=== PATIENT | male | born 1975 | race Caucasian/White ===

== ENCOUNTER 2020-07-14 19:01 | Emergency (ER) | payer OTHER ==
[2020-07-14] MEDS ORDERED: SODIUM CHLORIDE 0.9% 1,000 ML IV STA (19:25)
--- NOTE | 2020-07-14 20:01 | ED ---
General Adult HPI <Nelson Campos - Last Filed: 07/15/20 20:29> <Fam Colin - Last Filed: 07/15/20 23:14> - General Source: patient, family, RN notes reviewed, old records reviewed Mode of arrival: ambulatory Limitations: no limitations <Fam Le - Last Filed: 07/22/20 02:42> - General Chief complaint: Overdose Stated complaint: suicidal Time Seen by Provider: 07/14/20 19:15 - History of Present Illness Initial comments: 44-year-old male with schizoaffective disorder presenting for mental health evaluation. Patient states he has 3 voices in his head that are tormenting him. He does have a known history of mental illness. He had taken 15 gabapentin and 8 Ativan prior to arrival. He states this was not a suicide attempt. He states this was so that he could rest while he was in the emergency department. He is accompanied by his who has petitioned him. He has no physical complaints. (Fam Le) - Related Data Home Medications Medication Instructions Recorded Confirmed Methylphenidate HCl [Ritalin] 20 mg PO BID 10/17/14 07/16/20 FLUoxetine HCL [PROzac] 40 mg PO DAILY 07/14/20 07/16/20 Gabapentin 600 mg PO TID 07/14/20 07/16/20 INSULIN LISPRO (HumaLOG) [humaLOG] See Protocol SQ AC-TID 07/14/20 07/16/20 Insulin Detemir (Levemir) [Levemir] 50 unit SQ DAILY 07/14/20 07/16/20 LORazepam [Ativan] 0.5 mg PO DAILY PRN 07/14/20 07/16/20 Allergies Allergy/AdvReac Type Severity Reaction Status Date / Time No Known Allergies Allergy Verified 07/16/20 17:05 Review of Systems ROS Other: All systems not noted in ROS Statement are negative. <Nelson Campos - Last Filed: 07/15/20 20:29> ROS Other: All systems not noted in ROS Statement are negative. <Fam Colin - Last Filed: 07/15/20 23:14> ROS Other: All systems not noted in ROS Statement are negative. <Fam Le - Last Filed: 07/22/20 02:42> ROS Statement: Those systems with pertinent positive or pertinent negative responses have been documented in the HPI. Past Medical History Past Medical History: Diabetes Mellitus Additional Past Medical History / Comment(s): chronic back pain. PUNTURED RIGHT LUNG POST ACCIDENT (CHEST-TUBE) History of Any Multi-Drug Resistant Organisms: None Reported Past Surgical History: Appendectomy Past Anesthesia/Blood Transfusion Reactions: Previous Problems w/ Anesthesia Additional Past Anesthesia/Blood Transfusion Reaction / Comment(s): AGITATION, PATIENT STATES HE "FREAKED OUT", TRIED TO PULL OUT TUBES. Past Psychological History: Anxiety, Bipolar Smoking Status: Current every day smoker Past Alcohol Use History: Occasional Past Drug Use History: Marijuana - Past Family History Mother Family Medical History: Diabetes Mellitus <Fam Le - Last Filed: 07/22/20 02:42> General Exam Limitations: no limitations General appearance: alert, in no apparent distress Head exam: Present: atraumatic, normocephalic Eye exam: Present: normal appearance, PERRL ENT exam: Present: mucous membranes dry Neck exam: Present: normal inspection. Absent: tenderness, meningismus Respiratory exam: Present: normal lung sounds bilaterally. Absent: respiratory distress, wheezes Cardiovascular Exam: Present: normal rhythm, tachycardia GI/Abdominal exam: Present: soft. Absent: distended, tenderness, guarding, rebound Extremities exam: Present: normal inspection, normal capillary refill Neurological exam: Present: alert. Absent: motor sensory deficit Psychiatric exam: Present: agitated, flat affect, other (Flat affect, paranoid, delusional) Skin exam: Present: warm, dry, intact <Fam Le N - Last Filed: 07/22/20 02:42> Course <Fam Cloin - Last Filed: 07/15/20 23:14> <Fam Le N - Last Filed: 07/22/20 02:42> Vital Signs 07/14/20 07/15/20 07/15/20 19:03 07:21 17:30 Temperature 99.3 F 98 F 98.7 F Pulse Rate 113 H 90 98 Respiratory 16 18 18 Rate Blood Pressure 154/74 122/58 131/72 O2 Sat by Pulse 98 96 98 Oximetry 07/16/20 07:31 Temperature 98.2 F Pulse Rate 102 H Respiratory 18 Rate Blood Pressure 122/75 O2 Sat by Pulse 98 Oximetry - Reevaluation(s) Reevaluation #1: 07/14/20 21:10 Poison control has been contacted and and recommended supportive care. Patient has been medically cleared for EPS evaluation. (Fam Le) Reevaluation #2: 07/15/20 23:[address] Randhawa at shift change. (Fma Colin) Reevaluation #3: 07/22/20 02:42 Review the medical record it appears patient was transferred. (Fam Le) EKG Findings - EKG Comments: EKG Findings:: EKG: Sinus tachycardia, rate of 116, TN interval 172, QRS duration 84, QTC 442 <Fam eL - Last Filed: 07/22/20 02:42> Medical Decision Making - Lab Data Result diagrams: 07/14/20 20:22 07/14/20 20:22 <Nelson Campos - Last Filed: 07/15/20 20:29> - Lab Data Result diagrams: 07/14/20 20:22 07/14/20 20:22 <Fam Colin - Last Filed: 07/15/20 23:14> - Lab Data Result diagrams: 07/14/20 20:22 07/14/20 20:22 <Fam Le - Last Filed: 07/22/20 02:42> - Medical Decision Making Dr. Colin will be taking over the care of this patient at 9pm (Nelson Campos) - Lab Data Lab Results 07/14/20 07/14/20 07/14/20 Range/Units 20:22 20:22 20:22 WBC 8.8 (3.8-10.6) k/uL RBC 5.35 (4.30-5.90) m/uL Hgb 16.8 (13.0-17.5) gm/dL Hct 50.5 (39.0-53.0) % MCV 94.5 (80.0-100.0) fL MCH 31.4 (25.0-35.0) pg MCHC 33.2 (31.0-37.0) g/dL RDW 13.7 (11.5-15.5) % Plt Count 350 (150-450) k/uL MPV 7.0 Neutrophils % 57 % Lymphocytes % 29 % Monocytes % 5 % Eosinophils % 5 % Basophils % 2 % Neutrophils # 5.0 (1.3-7.7) k/uL Lymphocytes # 2.6 (1.0-4.8) k/uL Monocytes # 0.4 (0-1.0) k/uL Eosinophils # 0.4 (0-0.7) k/uL Basophils # 0.2 (0-0.2) k/uL PT 10.0 (9.0-12.0) sec INR 1.0 (<1.2) Sodium (137-145) mmol/L Potassium (3.5-5.1) mmol/L Chloride (98-107) mmol/L Carbon Dioxide (22-30) mmol/L Anion Gap mmol/L BUN (9-20) mg/dL Creatinine (0.66-1.25) mg/dL Est GFR (CKD-EPI)AfAm (>60 ml/min/1.73 sqM) Est GFR (CKD-EPI)NonAf (>60 ml/min/1.73 sqM) Glucose (74-99) mg/dL POC Glucose (mg/dL) (75-99) mg/dL POC Glu [employer] ID Plasma Lactic Acid Mateusz (0.7-2.0) mmol/L Calcium (8.4-10.2) mg/dL Phosphorus (2.5-4.5) mg/dL Magnesium (1.6-2.3) mg/dL Total Bilirubin (0.2-1.3) mg/dL AST (17-59) U/L ALT (4-49) U/L Alkaline Phosphatase (38-126) U/L Creatine Kinase (55-170) U/L Total Protein (6.3-8.2) g/dL Albumin (3.5-5.0) g/dL Urine Color Light Yellow Urine Appearance Clear (Clear) Urine pH 6.5 (5.0-8.0) Ur Specific [place] 1.032 (1.001-1.035) Urine Protein Negative (Negative) Urine Glucose (UA) 4+ H (Negative) Urine Ketones Negative (Negative) Urine Blood Negative (Negative) Urine Nitrite Negative (Negative) Urine Bilirubin Negative (Negative) Urine Urobilinogen <2.0 (<2.0) mg/dL Ur Leukocyte Esterase Negative (Negative) Salicylates mg/dL Urine Opiates Screen Not Detected (NotDetected) Ur Oxycodone Screen Not Detected (NotDetected) Urine Methadone Screen Not Detected (NotDetected) Ur Propoxyphene Screen Not Detected (NotDetected) Acetaminophen ug/mL Ur Barbiturates Screen Not Detected (NotDetected) U Tricyclic Antidepress Not Detected (NotDetected) Ur Phencyclidine Scrn Not Detected (NotDetected) Ur Amphetamines Screen Not Detected (NotDetected) U Methamphetamines Scrn Not Detected (NotDetected) U Benzodiazepines Scrn Detected H (NotDetected) Urine Cocaine Screen Not Detected (NotDetected) U Marijuana (THC) Screen Detected H (NotDetected) Serum Alcohol mg/dL Coronavirus (PCR) (Not Detectd) 07/14/20 07/14/20 07/15/20 Range/Units 20:22 20:22 01:30 WBC (3.8-10.6) k/uL RBC (4.30-5.90) m/uL Hgb (13.0-17.5) gm/dL Hct (39.0-53.0) % MCV (80.0-100.0) fL MCH (25.0-35.0) pg MCHC (31.0-37.0) g/dL RDW (11.5-15.5) % Plt Count (150-450) k/uL MPV Neutrophils % % Lymphocytes % % Monocytes % % Eosinophils % % Basophils % % Neutrophils # (1.3-7.7) k/uL Lymphocytes # (1.0-4.8) k/uL Monocytes # (0-1.0) k/uL Eosinophils # (0-0.7) k/uL Basophils # (0-0.2) k/uL PT (9.0-12.0) sec INR (<1.2) Sodium 136 L (137-145) mmol/L Potassium 4.7 (3.5-5.1) mmol/L Chloride 104 (98-107) mmol/L Carbon Dioxide 23 (22-30) mmol/L Anion Gap 9 mmol/L BUN 12 (9-20) mg/dL Creatinine 0.76 (0.66-1.25) mg/dL Est GFR (CKD-EPI)AfAm >90 (>60 ml/min/1.73 sqM) Est GFR (CKD-EPI)NonAf >90 (>60 ml/min/1.73 sqM) Glucose 417 H (74-99) mg/dL POC Glucose (mg/dL) (75-99) mg/dL POC Glu [employer] ID Plasma Lactic Acid Mateusz 1.7 (0.7-2.0) mmol/L Calcium 10.0 (8.4-10.2) mg/dL Phosphorus 4.4 (2.5-4.5) mg/dL Magnesium 2.2 (1.6-2.3) mg/dL Total Bilirubin 0.4 (0.2-1.3) mg/dL AST 24 (17-59) U/L ALT 25 (4-49) U/L Alkaline Phosphatase 109 (38-126) U/L Creatine Kinase 40 L (55-170) U/L Total Protein 7.2 (6.3-8.2) g/dL Albumin 4.3 (3.5-5.0) g/dL Urine Color Urine Appearance (Clear) Urine pH (5.0-8.0) Ur Specific [place] (1.001-1.035) Urine Protein (Negative) Urine Glucose (UA) (Negative) Urine Ketones (Negative) Urine Blood (Negative) Urine Nitrite (Negative) Urine Bilirubin (Negative) Urine Urobilinogen (<2.0) mg/dL Ur Leukocyte Esterase (Negative) Salicylates <1.0 mg/dL Urine Opiates Screen (NotDetected) Ur Oxycodone Screen (NotDetected) Urine Methadone Screen (NotDetected) Ur Propoxyphene Screen (NotDetected) Acetaminophen <10.0 ug/mL Ur Barbiturates Screen (NotDetected) U Tricyclic Antidepress (NotDetected) Ur Phencyclidine Scrn (NotDetected) Ur Amphetamines Screen (NotDetected) U Methamphetamines Scrn (NotDetected) U Benzodiazepines Scrn (NotDetected) Urine Cocaine Screen (NotDetected) U Marijuana (THC) Screen (NotDetected) Serum Alcohol <10 mg/dL Coronavirus (PCR) Not Detected (Not Detectd) 07/15/20 07/15/20 07/15/20 Range/Units 04:51 06:11 08:48 WBC (3.8-10.6) k/uL RBC (4.30-5.90) m/uL Hgb (13.0-17.5) gm/dL Hct (39.0-53.0) % MCV (80.0-100.0) fL MCH (25.0-35.0) pg MCHC (31.0-37.0) g/dL RDW (11.5-15.5) % Plt Count (150-450) k/uL MPV Neutrophils % % Lymphocytes % % Monocytes % % Eosinophils % % Basophils % % Neutrophils # (1.3-7.7) k/uL Lymphocytes # (1.0-4.8) k/uL Monocytes # (0-1.0) k/uL Eosinophils # (0-0.7) k/uL Basophils # (0-0.2) k/uL PT (9.0-12.0) sec INR (<1.2) Sodium (137-145) mmol/L Potassium (3.5-5.1) mmol/L Chloride (98-107) mmol/L Carbon Dioxide (22-30) mmol/L Anion Gap mmol/L BUN (9-20) mg/dL Creatinine (0.66-1.25) mg/dL Est GFR (CKD-EPI)AfAm (>60 ml/min/1.73 sqM) Est GFR (CKD-EPI)NonAf (>60 ml/min/1.73 sqM) Glucose (74-99) mg/dL POC Glucose (mg/dL) 328 H 269 H 356 H (75-99) mg/dL POC Glu [employer] CECY Tillman, Claire Tillman, Valerie Martin Plasma Lactic Acid Mateusz (0.7-2.0) mmol/L Calcium (8.4-10.2) mg/dL Phosphorus (2.5-4.5) mg/dL Magnesium (1.6-2.3) mg/dL Total Bilirubin (0.2-1.3) mg/dL AST (17-59) U/L ALT (4-49) U/L Alkaline Phosphatase (38-126) U/L Creatine Kinase (55-170) U/L Total Protein (6.3-8.2) g/dL Albumin (3.5-5.0) g/dL Urine Color Urine Appearance (Clear) Urine pH (5.0-8.0) Ur Specific [place] (1.001-1.035) Urine Protein (Negative) Urine Glucose (UA) (Negative) Urine Ketones (Negative) Urine Blood (Negative) Urine Nitrite (Negative) Urine Bilirubin (Negative) Urine Urobilinogen (<2.0) mg/dL Ur Leukocyte Esterase (Negative) Salicylates mg/dL Urine Opiates Screen (NotDetected) Ur Oxycodone Screen (NotDetected) Urine Methadone Screen (NotDetected) Ur Propoxyphene Screen (NotDetected) Acetaminophen ug/mL Ur Barbiturates Screen (NotDetected) U Tricyclic Antidepress (NotDetected) Ur Phencyclidine Scrn (NotDetected) Ur Amphetamines Screen (NotDetected) U Methamphetamines Scrn (NotDetected) U Benzodiazepines Scrn (NotDetected) Urine Cocaine Screen (NotDetected) U Marijuana (THC) Screen (NotDetected) Serum Alcohol mg/dL Coronavirus (PCR) (Not Detectd) 07/15/20 07/15/20 07/15/20 Range/Units 10:37 11:54 12:50 WBC (3.8-10.6) k/uL RBC (4.30-5.90) m/uL Hgb (13.0-17.5) gm/dL Hct (39.0-53.0) % MCV (80.0-100.0) fL MCH (25.0-35.0) pg MCHC (31.0-37.0) g/dL RDW (11.5-15.5) % Plt Count (150-450) k/uL MPV Neutrophils % % Lymphocytes % % Monocytes % % Eosinophils % % Basophils % % Neutrophils # (1.3-7.7) k/uL Lymphocytes # (1.0-4.8) k/uL Monocytes # (0-1.0) k/uL Eosinophils # (0-0.7) k/uL Basophils # (0-0.2) k/uL PT (9.0-12.0) sec INR (<1.2) Sodium (137-145) mmol/L Potassium (3.5-5.1) mmol/L Chloride (98-107) mmol/L Carbon Dioxide (22-30) mmol/L Anion Gap mmol/L BUN (9-20) mg/dL Creatinine (0.66-1.25) mg/dL Est GFR (CKD-EPI)AfAm (>60 ml/min/1.73 sqM) Est GFR (CKD-EPI)NonAf (>60 ml/min/1.73 sqM) Glucose (74-99) mg/dL POC Glucose (mg/dL) 422 H 287 H 198 H (75-99) mg/dL POC Glu [employer] ID Lakeisha, Li Davenport, Valerie Davenport, Valerie Plasma Lactic Acid Mateusz (0.7-2.0) mmol/L Calcium (8.4-10.2) mg/dL Phosphorus (2.5-4.5) mg/dL Magnesium (1.6-2.3) mg/dL Total Bilirubin (0.2-1.3) mg/dL AST (17-59) U/L ALT (4-49) U/L Alkaline Phosphatase (38-126) U/L Creatine Kinase (55-170) U/L Total Protein (6.3-8.2) g/dL Albumin (3.5-5.0) g/dL Urine Color Urine Appearance (Clear) Urine pH (5.0-8.0) Ur Specific [place] (1.001-1.035) Urine Protein (Negative) Urine Glucose (UA) (Negative) Urine Ketones (Negative) Urine Blood (Negative) Urine Nitrite (Negative) Urine Bilirubin (Negative) Urine Urobilinogen (<2.0) mg/dL Ur Leukocyte Esterase (Negative) Salicylates mg/dL Urine Opiates Screen (NotDetected) Ur Oxycodone Screen (NotDetected) Urine Methadone Screen (NotDetected) Ur Propoxyphene Screen (NotDetected) Acetaminophen ug/mL Ur Barbiturates Screen (NotDetected) U Tricyclic Antidepress (NotDetected) Ur Phencyclidine Scrn (NotDetected) Ur Amphetamines Screen (NotDetected) U Methamphetamines Scrn (NotDetected) U Benzodiazepines Scrn (NotDetected) Urine Cocaine Screen (NotDetected) U Marijuana (THC) Screen (NotDetected) Serum Alcohol mg/dL Coronavirus (PCR) (Not Detectd) 07/15/20 07/15/20 07/15/20 Range/Units 14:42 15:27 22:35 WBC (3.8-10.6) k/uL RBC (4.30-5.90) m/uL Hgb (13.0-17.5) gm/dL Hct (39.0-53.0) % MCV (80.0-100.0) fL MCH (25.0-35.0) pg MCHC (31.0-37.0) g/dL RDW (11.5-15.5) % Plt Count (150-450) k/uL MPV Neutrophils % % Lymphocytes % % Monocytes % % Eosinophils % % Basophils % % Neutrophils # (1.3-7.7) k/uL Lymphocytes # (1.0-4.8) k/uL Monocytes # (0-1.0) k/uL Eosinophils # (0-0.7) k/uL Basophils # (0-0.2) k/uL PT (9.0-12.0) sec INR (<1.2) Sodium (137-145) mmol/L Potassium (3.5-5.1) mmol/L Chloride (98-107) mmol/L Carbon Dioxide (22-30) mmol/L Anion Gap mmol/L BUN (9-20) mg/dL Creatinine (0.66-1.25) mg/dL Est GFR (CKD-EPI)AfAm (>60 ml/min/1.73 sqM) Est GFR (CKD-EPI)NonAf (>60 ml/min/1.73 sqM) Glucose (74-99) mg/dL POC Glucose (mg/dL) 124 H 135 H 214 H (75-99) mg/dL POC Glu [employer] Valerie Vicente Stephanie Sweeney, McKenna Plasma Lactic Acid Mateusz (0.7-2.0) mmol/L Calcium (8.4-10.2) mg/dL Phosphorus (2.5-4.5) mg/dL Magnesium (1.6-2.3) mg/dL Total Bilirubin (0.2-1.3) mg/dL AST (17-59) U/L ALT (4-49) U/L Alkaline Phosphatase (38-126) U/L Creatine Kinase (55-170) U/L Total Protein (6.3-8.2) g/dL Albumin (3.5-5.0) g/dL Urine Color Urine Appearance (Clear) Urine pH (5.0-8.0) Ur Specific [place] (1.001-1.035) Urine Protein (Negative) Urine Glucose (UA) (Negative) Urine Ketones (Negative) Urine Blood (Negative) Urine Nitrite (Negative) Urine Bilirubin (Negative) Urine Urobilinogen (<2.0) mg/dL Ur Leukocyte Esterase (Negative) Salicylates mg/dL Urine Opiates Screen (NotDetected) Ur Oxycodone Screen (NotDetected) Urine Methadone Screen (NotDetected) Ur Propoxyphene Screen (NotDetected) Acetaminophen ug/mL Ur Barbiturates Screen (NotDetected) U Tricyclic Antidepress (NotDetected) Ur Phencyclidine Scrn (NotDetected) Ur Amphetamines Screen (NotDetected) U Methamphetamines Scrn (NotDetected) U Benzodiazepines Scrn (NotDetected) Urine Cocaine Screen (NotDetected) U Marijuana (THC) Screen (NotDetected) Serum Alcohol mg/dL Coronavirus (PCR) (Not Detectd) 07/16/20 07/16/20 Range/Units 04:37 07:39 WBC (3.8-10.6) k/uL RBC (4.30-5.90) m/uL Hgb (13.0-17.5) gm/dL Hct (39.0-53.0) % MCV (80.0-100.0) fL MCH (25.0-35.0) pg MCHC (31.0-37.0) g/dL RDW (11.5-15.5) % Plt Count (150-450) k/uL MPV Neutrophils % % Lymphocytes % % Monocytes % % Eosinophils % % Basophils % % Neutrophils # (1.3-7.7) k/uL Lymphocytes # (1.0-4.8) k/uL Monocytes # (0-1.0) k/uL Eosinophils # (0-0.7) k/uL Basophils # (0-0.2) k/uL PT (9.0-12.0) sec INR (<1.2) Sodium (137-145) mmol/L Potassium (3.5-5.1) mmol/L Chloride (98-107) mmol/L Carbon Dioxide (22-30) mmol/L Anion Gap mmol/L BUN (9-20) mg/dL Creatinine (0.66-1.25) mg/dL Est GFR (CKD-EPI)AfAm (>60 ml/min/1.73 sqM) Est GFR (CKD-EPI)NonAf (>60 ml/min/1.73 sqM) Glucose (74-99) mg/dL POC Glucose (mg/dL) 228 H 263 H (75-99) mg/dL POC Glu [employer] ID Rose Gill Stephanie Plasma Lactic Acid Mateusz (0.7-2.0) mmol/L Calcium (8.4-10.2) mg/dL Phosphorus (2.5-4.5) mg/dL Magnesium (1.6-2.3) mg/dL Total Bilirubin (0.2-1.3) mg/dL AST (17-59) U/L ALT (4-49) U/L Alkaline Phosphatase (38-126) U/L Creatine Kinase (55-170) U/L Total Protein (6.3-8.2) g/dL Albumin (3.5-5.0) g/dL Urine Color Urine Appearance (Clear) Urine pH (5.0-8.0) Ur Specific [place] (1.001-1.035) Urine Protein (Negative) Urine Glucose (UA) (Negative) Urine Ketones (Negative) Urine Blood (Negative) Urine Nitrite (Negative) Urine Bilirubin (Negative) Urine Urobilinogen (<2.0) mg/dL Ur Leukocyte Esterase (Negative) Salicylates mg/dL Urine Opiates Screen (NotDetected) Ur Oxycodone Screen (NotDetected) Urine Methadone Screen (NotDetected) Ur Propoxyphene Screen (NotDetected) Acetaminophen ug/mL Ur Barbiturates Screen (NotDetected) U Tricyclic Antidepress (NotDetected) Ur Phencyclidine Scrn (NotDetected) Ur Amphetamines Screen (NotDetected) U Methamphetamines Scrn (NotDetected) U Benzodiazepines Scrn (NotDetected) Urine Cocaine Screen (NotDetected) U Marijuana (THC) Screen (NotDetected) Serum Alcohol mg/dL Coronavirus (PCR) (Not Detectd) Disposition <Nelson Campos - Last Filed: 07/15/20 20:29> <Fam Colin - Last Filed: 07/15/20 23:14> - Out of Hospital Transfer - Req. Specs Out of Hospital Transfer - Requested Specifics: Psychiatric Non-ICU (Transferred) <Fam Le - Last Filed: 07/22/20 02:42> Clinical Impression: Depression Disposition: OTHER INSTITUTION NOT DEFINED Condition: Undetermined Referrals: Mireya Elliott DO [Primary Care Provider] - 1-2 days
[2020-07-14 20:30] LABS: Basophils # (A) 0.2 k/uL (0-0.2); Basophils % (A) 2 %; Eosinophils # (A) 0.4 k/uL (0-0.7); Eosinophils % (A) 5 %; HCT 50.5 % (39.0-53.0); HGB 16.8 gm/dL (13.0-17.5); Lymphocytes # (A) 2.6 k/uL (1.0-4.8); Lymphocytes % (A) 29 %; MCH 31.4 pg (25.0-35.0); MCHC 33.2 g/dL (31.0-37.0); MCV 94.5 fL (80.0-100.0); Monocytes # (A) 0.4 k/uL (0-1.0); Monocytes % (A) 5 %; Neutrophils % (A) 57 %; Platelet Count 350 k/uL (150-450); RBC 5.35 m/uL (4.30-5.90); RDW 13.7 % (11.5-15.5); WBC 8.8 k/uL (3.8-10.6)
[2020-07-14 20:31] LABS: Appearance,Urine Clear (Clear); Bilirubin,Urine Negative (Negative); Blood,Urine Negative (Negative); Color,Urine Light Yellow; Glucose,Urine (UA) 4+ (Negative); Ketones,Urine Negative (Negative); Leukocyte Esterase,Urine Negative (Negative); Nitrite,Urine Negative (Negative); PH, Urine 6.5 (5.0-8.0); Protein,Urine Negative (Negative); Specific Gravity,Urine 1.032 (1.001-1.035); Urobilinogen,Urine <2.0 mg/dL (<2.0)
[2020-07-14 20:40] LABS: ALT 25 U/L (4-49); AST 24 U/L (17-59); Acetaminophen <10.0 ug/mL; African American GFR (CKD) >90 (>60 ml/min/1.73 sqM); Albumin 4.3 g/dL (3.5-5.0); Alcohol <10 mg/dL; Alkaline Phosphatase 109 U/L (38-126); Anion Gap 9 mmol/L; Blood Urea Nitrogen 12 mg/dL (9-20); Carbon Dioxide 23 mmol/L (22-30); Chloride 104 mmol/L (98-107); Creatine Kinase 40 U/L (55-170); Glucose 417 mg/dL (74-99); Magnesium 2.2 mg/dL (1.6-2.3); Non-African American GFR(CKD) >90 (>60 ml/min/1.73 sqM); Phosphorus 4.4 mg/dL (2.5-4.5); Potassium 4.7 mmol/L (3.5-5.1); Salicylate <1.0 mg/dL; Sodium 136 mmol/L (137-145); Total Bilirubin 0.4 mg/dL (0.2-1.3); Total Protein 7.2 g/dL (6.3-8.2)
[2020-07-14 20:45] LABS: Amphetamine Screen,Urine Not Detected (NotDetected); Barbiturate Screen,Urine Not Detected (NotDetected); Benzodiazepines Screen,Urine Detected (NotDetected); Cocaine Screen,Urine Not Detected (NotDetected); Methadone Screen, Urine Not Detected (NotDetected); Opiate Screen,Urine Not Detected (NotDetected); Oxycodone Screen, Urine Not Detected (NotDetected); Phencyclidine Screen,Urine Not Detected (NotDetected); Tricyclic Antidepressant,Urine Not Detected (NotDetected); Urn Cannabinoid Scrn Detected (NotDetected)
[2020-07-14] MEDS ORDERED: LORazepam 2 MG/ML INJ IV STA (23:27)
[2020-07-15] MEDS ORDERED: INSULIN REGULAR 100 UNIT/ML VIAL IV STA (04:39)
[2020-07-15 04:53] LABS: Glucose,Whole Blood 328 mg/dL (75-99)
[2020-07-15 06:13] LABS: Glucose,Whole Blood 269 mg/dL (75-99)
[2020-07-15] MEDS ORDERED: INSULIN REGULAR 100 UNIT/ML VIAL IV ONE ×2 (07:15→12:12)
[2020-07-15 07:25] VITALS: RESP 18
[2020-07-15 08:59] LABS: Glucose,Whole Blood 356 mg/dL (75-99)
[2020-07-15] MEDS ORDERED: SODIUM CHLORIDE 0.9% 1,000 ML IV ONE (09:11)
[2020-07-15] MEDS ORDERED: INSULIN ASPART (NovoLOG) 100 UNIT/ML VIAL SQ ONE ×2 (09:13→16:19)
[2020-07-15 10:38] LABS: Glucose,Whole Blood 422 mg/dL (75-99)
[2020-07-15 11:57] LABS: Glucose,Whole Blood 287 mg/dL (75-99)
[2020-07-15] MEDS ORDERED: NICOTINE 21MG/24HR PATCH TRANSDERM STA (11:59)
[2020-07-15] MEDS ORDERED: LORazepam 2 MG/ML INJ IV STA (12:12)
[2020-07-15 12:52] LABS: Glucose,Whole Blood 198 mg/dL (75-99)
[2020-07-15 14:43] LABS: Glucose,Whole Blood 124 mg/dL (75-99)
[2020-07-15 15:38] LABS: Glucose,Whole Blood 135 mg/dL (75-99)
[2020-07-15] MEDS: INSULIN ASPART (NovoLOG) 100 UNIT/ML VIAL SQ SCH (22:38)
[2020-07-15 22:47] LABS: Glucose,Whole Blood 214 mg/dL (75-99)
[2020-07-15] MEDS ORDERED: IBUPROFEN 600 MG TAB PO STA (22:49)
[2020-07-16 04:39] LABS: Glucose,Whole Blood 228 mg/dL (75-99)
[2020-07-16] MEDS ORDERED: LORazepam 1 MG TAB PO STA (04:45)
[2020-07-16 07:42] VITALS: BP 122/75; PULSE 102; TEMP 98.2
[2020-07-16 07:43] LABS: Glucose,Whole Blood 263 mg/dL (75-99)
[2020-07-16] MEDS: INSULIN ASPART (NovoLOG) 100 UNIT/ML VIAL SQ SCH (07:46)
== END 2020-07-16 12:24 | disposition other institution (70) ==
LOC: EC 19:01
DX: Z03.818 Encounter for observation for suspected exposure to other biological agents ruled out (principal); F32.9 Major depressive disorder, single episode, unspecified; E11.9 Type 2 diabetes mellitus without complications; F41.9 Anxiety disorder, unspecified; G89.29 Other chronic pain; M54.9 Dorsalgia, unspecified; F17.200 Nicotine dependence, unspecified, uncomplicated; Z79.899 Other long term (current) drug therapy; Z79.4 Long term (current) use of insulin
CPT/HCPCS: 82075; 36415 ×3; 93005; 80053; 82550; 83605; 83735; 84100; 85025; 85610; 81003; 80306; 83520; 80329; 80320; 87635; 99285; 96374; 96376; 96361 ×2; S4990; J2060 ×2

== ENCOUNTER 2020-07-16 15:04 | Emergency (ER) | payer OTHER ==
--- NOTE | 2020-07-16 15:28 | ED ---
General Adult HPI <Rajat Suero - Last Filed: 07/16/20 22:54> <Kadeem Rodriguez - Last Filed: 07/17/20 10:07> - General Stated complaint: Mental Health Time Seen by Provider: 07/16/20 15:16 - History of Present Illness Initial comments: Dictation was produced using [employer] dictation software. please excuse any grammatical, word or spelling errors. This patient was cared for during a federal and state declared state of emergency secondary to Covid 19 Chief Complaint: Patient is a 44-year-old male who was rejected from [facility] back to emergency department History of Present Illness: Patient is a 44-year-old male he was seen in our hospital 2 days ago. He was petitioned by his for suicidal ideation and suicidal behavior. Patient is history of schizoaffective disorder. Patient at that time despite signs of psychosis. He was boarded in our emergency department for 2-3 days. Finally arrangements were made to transfer patient to [facility]. EMS control patient already down to the [facility] and when he finally got there they refuse patient admission due to patient's regular baseline use of CPAP. EMS then turn around and brought patient back to the emergency department. Patient is very upset. He denies being suicidal at this time. Patient attempted to overdose on his gabapentin his Ativan. Patient does have a known history of mental illness. He denies feeling suicidal at this time. He does report feeling slightly anxious just not as severe as what he was here in emergency department earlier today. Patient is just very disappointed due to logistical issues. He reports that he wants nothing more than to just go home. The ROS documented in this emergency department record has been reviewed and confirmed by me. Those systems with pertinent positive or negative responses have been documented in the HPI. All other systems are other negative and/or noncontributory. PHYSICAL EXAM: General Impression: Alert and oriented x3, not in acute distress HEENT: Normocephalic atraumatic, extra-ocular movements intact, pupils equal and reactive to light bilaterally, mucous membranes moist. Cardiovascular: Heart regular rate and rhythm Chest: Able to complete full sentences, no retractions, no tachypnea Abdomen: abdomen soft, non-tender, non-distended, no organomegaly Musculoskeletal: Pulses present and equal in all extremities, no peripheral edema Motor: no focal deficits noted Neurological: CN II-XII grossly intact, no focal motor or sensory deficits noted Skin: Intact with no visualized rashes Psych: Normal affect and mood ED course: 44-year-old male presents emergency department for behavioral health placement. According to her nurse we do not have a EPS nurse on staff at the moment due to scheduling issues. Patient will be 42 in emergency department. EPS of the consulted and will value with patient when they are available. Patient is cooperative. He is not showing any psychotic symptoms at this time. Patient presented to Dr. Randhawa (Rajat Suero) - Related Data Home Medications Medication Instructions Recorded Confirmed Methylphenidate HCl [Ritalin] 20 mg PO BID 10/17/14 07/16/20 FLUoxetine HCL [PROzac] 40 mg PO DAILY 07/14/20 07/16/20 Gabapentin 600 mg PO TID 07/14/20 07/16/20 INSULIN LISPRO (HumaLOG) [humaLOG] See Protocol SQ AC-TID 07/14/20 07/16/20 Insulin Detemir (Levemir) [Levemir] 50 unit SQ DAILY 07/14/20 07/16/20 LORazepam [Ativan] 0.5 mg PO DAILY PRN 07/14/20 07/16/20 Allergies Allergy/AdvReac Type Severity Reaction Status Date / Time No Known Allergies Allergy Verified 07/16/20 17:05 Review of Systems ROS Other: All systems not noted in ROS Statement are negative. <Rajat Suero - Last Filed: 07/16/20 22:54> ROS Other: All systems not noted in ROS Statement are negative. <Kadeem Rodriguez - Last Filed: 07/17/20 10:07> ROS Statement: Those systems with pertinent positive or pertinent negative responses have been documented in the HPI. Past Medical History Past Medical History: Diabetes Mellitus Additional Past Medical History / Comment(s): chronic back pain. PUNTURED RIGHT LUNG POST ACCIDENT (CHEST-TUBE) History of Any Multi-Drug Resistant Organisms: None Reported Past Surgical History: Appendectomy Past Anesthesia/Blood Transfusion Reactions: Previous Problems w/ Anesthesia Additional Past Anesthesia/Blood Transfusion Reaction / Comment(s): AGITATION, PATIENT STATES HE "FREAKED OUT", TRIED TO PULL OUT TUBES. Past Psychological History: Anxiety, Bipolar Smoking Status: Current every day smoker Past Alcohol Use History: Occasional Past Drug Use History: Marijuana - Past Family History Mother Family Medical History: Diabetes Mellitus <Rajat Suero - Last Filed: 07/16/20 22:54> Course Vital Signs 07/16/20 07/16/20 15:35 16:27 Temperature 97.8 F Pulse Rate 101 H 99 Respiratory 18 18 Rate Blood Pressure 118/107 121/68 O2 Sat by Pulse 97 98 Oximetry Medical Decision Making <Kadeem Rodriguez - Last Filed: 07/17/20 10:07> - Medical Decision Making Patient was seen by mental health services with plan for discharge. Psychiatrist did see patient. They reportedly did not need to do a negative syrup because only one certain had been done. Patient denies suicidal ideation and does contract for safety. (Kadeem Rodriguez) - Lab Data Lab Results 07/16/20 07/16/20 Range/Units 17:03 20:33 POC Glucose (mg/dL) 302 H 264 H (75-99) mg/dL POC Glu Stage Driver ID Valerie Davenport Ashley Disposition <Rajat Suero - Last Filed: 07/16/20 22:54> Is patient prescribed a controlled substance at d/c from ED?: No Time of Disposition: 10:07 <Kadeem Rodriguez - Last Filed: 07/17/20 10:07> Clinical Impression: Depression Disposition: HOME SELF-CARE Condition: Stable Instructions (If sedation given, give patient instructions): Depression (ED) Additional Instructions: Please follow-up with mental health services as directed. Please follow-up to primary care physician in the next day or 2 for recheck. Return for thoughts of self-harm, worsening symptoms or other concerns. Referrals: Mireya Elliott DO [Primary Care Provider] - 1-2 days
[2020-07-16 15:39] VITALS: RESP 18
[2020-07-16] MEDS ORDERED: LORazepam 1 MG TAB PO STA (15:47)
[2020-07-16] MEDS ORDERED: LORazepam 1 MG TAB PO PRN (15:48)
[2020-07-16] MEDS ORDERED: NICOTINE 21MG/24HR PATCH TRANSDERM STA (16:27)
[2020-07-16] MEDS: INSULIN ASPART (NovoLOG) 100 UNIT/ML VIAL SQ SCH ×2 (17:05→20:46)
[2020-07-16 17:07] LABS: Glucose,Whole Blood 302 mg/dL (75-99)
[2020-07-16 20:35] LABS: Glucose,Whole Blood 264 mg/dL (75-99)
[2020-07-16] MEDS ORDERED: INSULIN DETEMIR (LEVEMIR) 100 UNIT/ML SYR SQ SCH (21:00)
--- NOTE | 2020-07-17 09:24 | P.CN ---
Psychiatric Consult - . Consult date: 07/17/20 Consult:: IDENTIFYING DATA: This patient is a , employed, 44-year-old male was brought to the emergency department for suicidal ideation and suicidal behavior. HISTORY OF PRESENT ILLNESS: The patient presented to the hospital initially 2 days ago after being petition by his for suicidal ideation with attempted overdose by taking 15 gabapentin and 8 Ativan. Patient initially reported that this was not an intentional overdose. There was also reports that the patient was experienced hallucinations. Patient was to be transferred to the [place], [place] but refused due to the patient using CPAP. Upon reevaluation the emergency department, the patient is not reporting any suicidal or homicidal ideation, intention, and/or plan. He is not reporting any significant symptoms of depression. He reports no anhedonia, low mood, difficulty sleeping, hopelessness, or helplessness. He reports that he was feeling initially suicidal after some comments were made by his son. He is not reporting any suicidal ideation and states that if he was to feel suicidal that he would contact crisis numbers, go to the emergency department, and let his family members know. The patient and his agreed to a safety plan. The patient is also not endorsing any auditory or visual hallucinations. He is not reporting any delusions. At this time, the patient is future oriented and is eager for discharge. PAST PSYCHIATRIC HISTORY: Patient has a a history of schizoaffective disorder. His home medications include Ritalin, Prozac, and gabapentin. He reports no prior inpatient psychiatric hospitalizations. He denies any prior attempts at suicide. PAST MEDICAL HISTORY: Diabetes mellitus. ALLERGIES: as per EMR. CHEMICAL DEPENDENCY HISTORY: Patient reports occasional alcohol use. He does use marijuana. He currently smokes tobacco every day. SOCIAL HISTORY: Patient currently lives with his Maribel in [place], [place]. He is currently employed by [employer]. He does have a history of legal problems 15 years ago where he was charged with home invasion. He is not currently on parole or probation. MENTAL STATUS EXAM: General Appearance: Patient appears to be stated age is alert, pleasant, and cooperative. Patient appears to have fair hygiene and grooming wearing hospital gown with fair eye contact. Behavior: Patient is calmly lying in bed without any agitated behavior. Speech: Patient's speech is fluent and nonpressured. Mood/Affect: Patient reports their mood is "better", affect is congruent Suicidality/Homicidality: Patient denies having any suicidal or homicidal ideation intent or plan. Perceptions: Patient denies any visual hallucinations and denies any auditory hallucinations Though content/process: There is no evidence of any delusional thought content and thought process is linear and goal-directed. Memory and concentration: AOX3, grossly intact for the purposes of this session. Can spell "WORLD" backwards Judgment and insight: Fair IMPRESSIONS: Schizoaffective disorder, by history Major depressive disorder, recurrent PLAN: -At this time patient DOES NOT meet criteria for inpatient psychiatric admission. -Would recommend the following medication changes/additions: No medication changes are recommended at this time. -Would recommend close follow-up with his outpatient psychiatric provider -Patient and have been able to agree to safety planning. Patient's agrees to monitor the patient at this time. -Psychiatry will sign off at this point, please contact with any questions. 07/17/20 09:14
[2020-07-17 10:19] VITALS: BP 130/80; PULSE 110; TEMP 98.5
== END 2020-07-17 10:19 | disposition home or self-care (01) ==
LOC: EC 15:04
DX: F32.9 Major depressive disorder, single episode, unspecified (principal); E11.9 Type 2 diabetes mellitus without complications; G89.29 Other chronic pain; M54.9 Dorsalgia, unspecified; F17.200 Nicotine dependence, unspecified, uncomplicated; F41.9 Anxiety disorder, unspecified; G47.30 Sleep apnea, unspecified; Z79.4 Long term (current) use of insulin; Z79.899 Other long term (current) drug therapy; Z99.89 Dependence on other enabling machines and devices
CPT/HCPCS: 36415; 99285; S4990

== ENCOUNTER 2021-07-25 11:14 | Emergency (ER) | payer OTHER ==
--- NOTE | 2021-07-25 12:58 | ED ---
Skin/Abscess/FB HPI - General Chief complaint: Skin/Abscess/Foreign Body Stated complaint: lumps under left armpit Time Seen by Provider: 07/25/21 12:33 Source: patient, RN notes reviewed Mode of arrival: ambulatory Limitations: no limitations - History of Present Illness Initial comments: Patient is a 45-year-old male presenting to the emergency department with complaints of bumps and sores in his left armpit over the past 3 days. Patient states he has had similar symptom in the past, he is requesting oral antibiotics. He denies any fevers or chills, no nausea or vomiting. He denies any redness to the area. Patient has no further complaints at this time. - Related Data Home Medications Medication Instructions Recorded Confirmed INSULIN LISPRO (HumaLOG) [humaLOG] 12 - 15 units SQ DAILY 07/14/20 05/06/21 Insulin Detemir (Levemir) [Levemir] 50 unit SQ DAILY 07/14/20 05/06/21 Gabapentin 800 mg PO TID 05/06/21 05/06/21 LORazepam [Ativan] 1 mg PO DAILY PRN 05/06/21 05/06/21 Methylphenidate HCl [Ritalin] 20 mg PO TID@0600,1100,1700 05/06/21 05/06/21 Mirtazapine 45 mg PO HS 05/06/21 05/06/21 QUEtiapine [SEROquel] 100 mg PO DAILY 05/06/21 05/06/21 QUEtiapine [SEROquel] 200 mg PO HS 05/06/21 05/06/21 Sertraline [Zoloft] 250 mg PO HS 05/06/21 05/06/21 Sildenafil Citrate 100 mg PO DAILY PRN 05/06/21 05/06/21 cloNIDine HCL [Catapres] 0.3 mg PO BID 05/06/21 05/06/21 hydrOXYzine pamoate [hydrOXYzine 100 mg PO TID PRN 05/06/21 05/06/21 PAMOATE] traZODone HCL 150 mg PO HS 05/06/21 05/06/21 Previous Rx's Medication Instructions Recorded Sulfamethox-Tmp 800-160Mg [Bactrim 1 each PO Q12HR 7 Days #14 tab 07/25/21 Ds] Allergies Allergy/AdvReac Type Severity Reaction Status Date / Time fluoxetine AdvReac Suicidal Verified 07/25/21 11:38 Review of Systems ROS Statement: Those systems with pertinent positive or pertinent negative responses have been documented in the HPI. ROS Other: All systems not noted in ROS Statement are negative. Past Medical History Past Medical History: Diabetes Mellitus Additional Past Medical History / Comment(s): chronic back pain. PUNTURED RIGHT LUNG POST ACCIDENT (CHEST-TUBE) History of Any Multi-Drug Resistant Organisms: None Reported Past Surgical History: Appendectomy Past Anesthesia/Blood Transfusion Reactions: Previous Problems w/ Anesthesia Additional Past Anesthesia/Blood Transfusion Reaction / Comment(s): AGITATION, PATIENT STATES HE "FREAKED OUT", TRIED TO PULL OUT TUBES. Past Psychological History: Anxiety, Bipolar, Depression, PTSD, Schizoaffective Disorder Smoking Status: Current every day smoker Past Alcohol Use History: Occasional Past Drug Use History: Marijuana - Past Family History Mother Family Medical History: Diabetes Mellitus General Exam - General Exam Comments Initial Comments: GENERAL: Patient is well-developed and well-nourished. Patient is nontoxic and in no acute distress. HEAD: Atraumatic, normocephalic. EYES: Pupils equal round and reactive to light, extraocular movements intact, sclera anicteric, conjunctiva are normal. Eyelids were unremarkable. LUNGS: Unlabored respirations. Breath sounds clear to auscultation bilaterally and equal. No wheezes rales or rhonchi. HEART: Regular rate and rhythm without murmurs, rubs or gallops. MUSCULOSKELETAL: Normal extremities with adequate strength and normal range of motion, no pitting or edema. No clubbing or cyanosis. NEUROLOGICAL: Patient is alert and oriented x 3. SKIN: Warm, Dry, normal turgor. patient has about 3-4 small erythematous papules in the left armpit, this is tender to the touch, some induration present but no areas of fluctuance, no abscess noted. Limitations: no limitations Course Vital Signs 07/25/21 11:33 Temperature 98.1 F Pulse Rate 116 H Respiratory 18 Rate Blood Pressure 117/81 O2 Sat by Pulse 98 Oximetry Medical Decision Making - Medical Decision Making patient is a 45-year-old male presenting with sores in the left armpit for the past 3 days. He's had similar thing in the past. He is requesting oral antibiotics. There is no abscess or fluctuance noted. Patient will be started on oral antibiotics. He can follow up with his primary care. Return parameters were discussed with him and he verbalized understanding. Disposition Clinical Impression: Left axillary pain, Rash Disposition: HOME SELF-CARE Condition: Stable Instructions (If sedation given, give patient instructions): Cellulitis (ED) Additional Instructions: Please return to the Emergency Department if symptoms worsen or any other concerns. Take antibiotic as prescribed. Follow-up with your primary care. Prescriptions: Sulfamethox-Tmp 800-160Mg [Bactrim Ds] 1 each PO Q12HR 7 Days #14 tab Is patient prescribed a controlled substance at d/c from ED?: No Referrals: Mireya Elliott DO [Primary Care Provider] - 1-2 days Time of Disposition: 12:58
[2021-07-25 13:21] VITALS: BP 136/77; PULSE 100; RESP 20; TEMP 98.4
== END 2021-07-25 13:18 | disposition home or self-care (01) ==
LOC: EC 11:14
DX: M79.622 Pain in left upper arm (principal); R21 Rash and other nonspecific skin eruption; E11.9 Type 2 diabetes mellitus without complications; F41.9 Anxiety disorder, unspecified; F31.9 Bipolar disorder, unspecified; F43.10 Post-traumatic stress disorder, unspecified; F25.9 Schizoaffective disorder, unspecified; F17.200 Nicotine dependence, unspecified, uncomplicated; F12.90 Cannabis use, unspecified, uncomplicated; Z72.89 Other problems related to lifestyle; Z79.4 Long term (current) use of insulin
CPT/HCPCS: 99283

== ENCOUNTER 2023-11-25 12:41 | Inpatient (IN) | payer OTHER ==
--- NOTE | 2023-11-25 12:47 | ED ---
General Adult HPI - General Stated complaint: Overdose on Rx Meds, Petition Time Seen by Provider: 11/25/23 12:46 Source: patient, police, EMS, RN notes reviewed, old records reviewed Limitations: altered mental status - History of Present Illness Initial comments: 48-year-old male presenting with overdose. This was reported as an intentional overdose. The patient admits to taking Seroquel, Ativan and insulin. He has multiple medications that he states he is not sure exactly what he took. He is unable or unwilling to tell exactly how much medication he took. This was an intentional overdose. Accompanied by paramedics and police. - Related Data Home Medications Medication Instructions Recorded Confirmed INSULIN LISPRO (HumaLOG) [humaLOG] 15 - 20 units SQ DAILY PRN 07/14/20 11/25/23 Gabapentin 800 mg PO 5XD 05/06/21 11/25/23 Sildenafil Citrate 100 mg PO DAILY PRN 05/06/21 11/25/23 DULoxetine HCL [Cymbalta] 60 mg PO BID 11/25/23 11/25/23 HYDROcodone/APAP 10-325MG [[place] 1 tab PO Q6HR PRN 11/25/23 11/25/23 10-325] Insulin Glargine,Hum.rec.anlog 48 units SQ DAILY 11/25/23 11/25/23 [[place]] Methylphenidate HCl [Ritalin] 20 mg PO TID 11/25/23 11/25/23 Omeprazole [PriLOSEC] 40 mg PO DAILY 11/25/23 11/25/23 Oxybutynin Chloride [oxyBUTYnin 15 mg PO DAILY 11/25/23 11/25/23 chloride ER] Pioglitazone [Actos] 30 mg PO DAILY 11/25/23 11/25/23 QUEtiapine FUMARATE [SEROquel] 400 mg PO HS 11/25/23 11/25/23 Zolpidem [Ambien] 10 mg PO HS 11/25/23 11/25/23 clonazePAM [KlonoPIN] 0.5 mg PO DAILY PRN 11/25/23 11/25/23 rOPINIRole HCL [Requip] 1.5 mg PO HS 11/25/23 11/25/23 Allergies Allergy/AdvReac Type Severity Reaction Status Date / Time fluoxetine AdvReac Suicidal Verified 03/30/24 13:31 Review of Systems ROS Statement: Those systems with pertinent positive or pertinent negative responses have been documented in the HPI. ROS Other: All systems not noted in ROS Statement are negative. Past Medical History Past Medical History: Diabetes Mellitus Additional Past Medical History / Comment(s): chronic back pain. PUNTURED RIGHT LUNG POST ACCIDENT (CHEST-TUBE) History of Any Multi-Drug Resistant Organisms: None Reported Past Surgical History: Appendectomy Past Anesthesia/Blood Transfusion Reactions: Previous Problems w/ Anesthesia Additional Past Anesthesia/Blood Transfusion Reaction / Comment(s): AGITATION, PATIENT STATES HE "FREAKED OUT", TRIED TO PULL OUT TUBES. Past Psychological History: Anxiety, Bipolar, Depression, PTSD, Schizoaffective Disorder Smoking Status: Current every day smoker Past Alcohol Use History: Occasional Past Drug Use History: Marijuana - Past Family History Mother Family Medical History: Diabetes Mellitus General Exam General appearance: in no apparent distress, appears intoxicated Head exam: Present: atraumatic, normocephalic Eye exam: Present: normal appearance, PERRL ENT exam: Present: normal exam Neck exam: Present: normal inspection. Absent: tenderness, meningismus Respiratory exam: Present: normal lung sounds bilaterally. Absent: respiratory distress, wheezes Cardiovascular Exam: Present: normal rhythm, tachycardia GI/Abdominal exam: Present: soft. Absent: distended, tenderness Extremities exam: Present: normal inspection, normal capillary refill Neurological exam: Present: alert, oriented X3 (Oriented but slow to respond). Absent: motor sensory deficit Psychiatric exam: Present: flat affect, suicidal ideation Skin exam: Present: warm, dry, intact Course Vital Signs 11/25/23 11/25/23 11/25/23 12:52 13:10 13:14 Temperature 97.2 F L Pulse Rate 125 H 120 H Pulse Rate [ 123 H Line Patrolman ] Respiratory 18 24 Rate Blood Pressure 86/45 66/39 O2 Sat by Pulse 94 L 94 L Oximetry 11/25/23 11/25/23 11/25/23 13:25 13:38 13:48 Temperature Pulse Rate 112 H 113 H 110 H Pulse Rate [ Line Patrolman ] Respiratory 20 18 18 Rate Blood Pressure 99/47 76/51 76/57 O2 Sat by Pulse 90 L 89 L 93 L Oximetry 11/25/23 11/25/23 11/25/23 13:59 14:27 14:47 Temperature Pulse Rate 111 H 103 H 104 H Pulse Rate [ Line Patrolman ] Respiratory 20 18 20 Rate Blood Pressure 82/59 70/46 79/44 O2 Sat by Pulse 95 93 L 94 L Oximetry 11/25/23 11/25/23 11/25/23 15:14 15:23 16:07 Temperature Pulse Rate 112 H 109 H 106 H Pulse Rate [ Line Patrolman ] Respiratory 18 18 18 Rate Blood Pressure 73/40 91/52 79/60 O2 Sat by Pulse 95 97 98 Oximetry 11/25/23 11/25/23 11/25/23 16:15 16:30 17:13 Temperature Pulse Rate 108 H 110 H 114 H Pulse Rate [ Line Patrolman ] Respiratory 18 18 18 Rate Blood Pressure 104/52 93/42 96/66 O2 Sat by Pulse 99 98 98 Oximetry 11/25/23 11/25/23 17:58 18:43 Temperature Pulse Rate 104 H 96 Pulse Rate [ Line Patrolman ] Respiratory 18 18 Rate Blood Pressure 110/79 151/80 O2 Sat by Pulse 98 97 Oximetry Medical Decision Making - Medical Decision Making Was pt. sent in by a medical professional or institution (, PA, REST ROOM MAID, urgent care, hospital, or penitentiary...) When possible be specific @ -No Did you speak to anyone other than the patient for history (EMS, parent, family, police, friend...)? What history was obtained from this source @ -No Did you review nursing and triage notes (agree or disagree)? Why? @ -I reviewed and agree with nursing and triage notes Were old charts reviewed (outside hosp., previous admission, EMS record, old EKG, old radiological studies, urgent care reports/EKG's, penitentiary records)? Report findings @ -No old charts were reviewed Differential Diagnosis (chest pain, altered mental status, abdominal pain women, abdominal pain men, vaginal bleeding, weakness, fever, dyspnea, syncope, headache, dizziness, GI bleed, back pain, seizure, CVA, palpatations, mental health, musculoskeletal)? @ -[Differential Mental Health Depression, anxiety, bipolar, psychosis, schizophrenia, borderline personality, situational depression, adjustment disorder, behavioral disorder, brain tumor, malingering, substance abuse, encephalopathy, medication reaction, dementia, hypothyroidism, degenerative neurologic disorder, lupus.... This is not meant to be all-inclusive list EKG interpreted by me (3pts min.). @EKG: Sinus tachycardia rate of 124, NM interval 164, QRS duration 86, QTc [address] segment elevation. Repeat EKG at 1852, normal sinus rate of 95, NM interval 180, QRS duration 102, QTc [address] segment elevation, unchanged from prior. X-rays interpreted by me (1pt min.). @ -Chest x-ray, low lung volumes, no acute process CT interpreted by me (1pt min.). @ -None done U/S interpreted by me (1pt. min.). @ -None done What testing was considered but not performed or refused? (CT, X-rays, U/S, labs)? Why? @ -None What meds were considered but not given or refused? Why? @ -None Did you discuss the management of the patient with other professionals (professionals i.e. , PA, [employer], lab, RT, psych nurse, social media executive, lathe set up operator, teacher, medical officer psychiatry, case checker)? Give summary @ -No Was smoking cessation discussed for >3mins.? @ -No Was critical care preformed (if so, how long)? @ -Yes, 35 minutes Were there social determinants of health that impacted care today? How? (Homelessness, low income, unemployed, alcoholism, drug addiction, transportation, low edu. Level, literacy, decrease access to med. care, assisted, rehab)? @ -No Was there de-escalation of care discussed even if they declined (Discuss DNR or withdrawal of care, Hospice)? DNR status @ -No What co-morbidities impacted this encounter? (DM, HTN, Smoking, COPD, CAD, Cancer, CVA, ARF, Chemo, Hep., AIDS, mental health diagnosis, sleep apnea, morbid obesity)? @ -None Was patient admitted / discharged? Hospital course, mention meds given and route, prescriptions, significant lab abnormalities, going to OR and other pertinent info. @ -48-year-old male with polysubstance overdose. Patient admits to Seroquel, Ativan, and insulin. He is not able to quantify the amount of medications. Patient is alert upon arrival but somewhat somnolent. Patient has initial stable blood glucose. Normal CBC, CMP showing some acidosis with a lactic acidosis of 5 this is treated with IV fluids. Patient remains responsive to voice but in between he is sleeping with snoring respirations. His blood pressures are marginal and will be monitored in the ICU. Case discussed with Dr. Martin who will admit, Dr. Olivarez covering for the ICU. Undiagnosed new problem with uncertain prognosis? @ -No Drug Therapy requiring intensive monitoring for toxicity (Heparin, Nitro, Insulin, Cardizem)? @ -No Were any procedures done? @ -No Diagnosis/symptom? @ -Polysubstance overdose, suicide attempt, hypotension Acute, or Chronic, or Acute on Chronic? @ -Acute Uncomplicated (without systemic symptoms) or Complicated (systemic symptoms)? @ -Default Side effects of treatment? @ -No Exacerbation, Progression, or Severe Exacerbation? @ -No Poses a threat to life or bodily function? How? (Chest pain, USA, ND, pneumonia, PE, COPD, DKA, ARF, appy, cholecystitis, CVA, Diverticulitis, Homicidal, Suicidal, threat to staff... and all critical care pts) @ -Yes, hypotension, polysubstance overdose - Lab Data Result diagrams: 11/25/23 13:08 11/25/23 13:08 Lab Results 11/25/23 11/25/23 11/25/23 Range/Units 13:08 13:08 13:08 WBC 6.9 (3.8-10.6) k/uL RBC 4.51 (4.30-5.90) m/uL Hgb 13.2 (13.0-17.5) gm/dL Hct 43.5 (39.0-53.0) % MCV 96.4 (80.0-100.0) fL MCH 29.3 (25.0-35.0) pg MCHC 30.4 L (31.0-37.0) g/dL RDW 14.7 (11.5-15.5) % Plt Count 332 (150-450) k/uL MPV 7.1 Neutrophils % 65 % Lymphocytes % 27 % Monocytes % 5 % Eosinophils % 1 % Basophils % 0 % Neutrophils # 4.5 (1.3-7.7) k/uL Lymphocytes # 1.9 (1.0-4.8) k/uL Monocytes # 0.3 (0-1.0) k/uL Eosinophils # 0.1 (0-0.7) k/uL Basophils # 0.0 (0-0.2) k/uL Hypochromasia Slight PT 10.4 (10.0-12.5) sec INR 0.9 (<1.2) Sodium 140 (137-145) mmol/L Potassium 3.6 (3.5-5.1) mmol/L Chloride 110 H (98-107) mmol/L Carbon Dioxide 18 L (22-30) mmol/L Anion Gap 12 mmol/L BUN 18 (9-20) mg/dL Creatinine 1.11 (0.66-1.25) mg/dL Est GFR (CKD-EPI)AfAm >90 (>60 ml/min/1.73 sqM) Est GFR (CKD-EPI)NonAf 79 (>60 ml/min/1.73 sqM) Glucose 237 H (74-99) mg/dL POC Glucose (mg/dL) (70-110) mg/dL POC Glu General Repair Mechanic ID Lactic Ac Sepsis Rflx Plasma Lactic Acid Mateusz (0.7-2.0) mmol/L Calcium 9.6 (8.4-10.2) mg/dL Total Bilirubin 0.2 (0.2-1.3) mg/dL AST 18 (17-59) U/L ALT 21 (4-49) U/L Alkaline Phosphatase 111 (38-126) U/L Total Protein 6.2 L (6.3-8.2) g/dL Albumin 3.6 (3.5-5.0) g/dL Salicylates <1.0 mg/dL Acetaminophen <10.0 ug/mL Serum Alcohol <10 mg/dL 11/25/23 11/25/23 11/25/23 Range/Units 13:08 13:20 13:44 WBC (3.8-10.6) k/uL RBC (4.30-5.90) m/uL Hgb (13.0-17.5) gm/dL Hct (39.0-53.0) % MCV (80.0-100.0) fL MCH (25.0-35.0) pg MCHC (31.0-37.0) g/dL RDW (11.5-15.5) % Plt Count (150-450) k/uL MPV Neutrophils % % Lymphocytes % % Monocytes % % Eosinophils % % Basophils % % Neutrophils # (1.3-7.7) k/uL Lymphocytes # (1.0-4.8) k/uL Monocytes # (0-1.0) k/uL Eosinophils # (0-0.7) k/uL Basophils # (0-0.2) k/uL Hypochromasia PT (10.0-12.5) sec INR (<1.2) Sodium (137-145) mmol/L Potassium (3.5-5.1) mmol/L Chloride (98-107) mmol/L Carbon Dioxide (22-30) mmol/L Anion Gap mmol/L BUN (9-20) mg/dL Creatinine (0.66-1.25) mg/dL Est GFR (CKD-EPI)AfAm (>60 ml/min/1.73 sqM) Est GFR (CKD-EPI)NonAf (>60 ml/min/1.73 sqM) Glucose (74-99) mg/dL POC Glucose (mg/dL) 208 H (70-110) mg/dL POC Glu General Repair Mechanic ID Leander Pierre Lactic Ac Sepsis Rflx Y Plasma Lactic Acid Mateusz 5.4 H* (0.7-2.0) mmol/L Calcium (8.4-10.2) mg/dL Total Bilirubin (0.2-1.3) mg/dL AST (17-59) U/L ALT (4-49) U/L Alkaline Phosphatase (38-126) U/L Total Protein (6.3-8.2) g/dL Albumin (3.5-5.0) g/dL Salicylates mg/dL Acetaminophen ug/mL Serum Alcohol mg/dL 11/25/23 11/25/23 11/25/23 Range/Units 13:56 14:40 16:05 WBC (3.8-10.6) k/uL RBC (4.30-5.90) m/uL Hgb (13.0-17.5) gm/dL Hct (39.0-53.0) % MCV (80.0-100.0) fL MCH (25.0-35.0) pg MCHC (31.0-37.0) g/dL RDW (11.5-15.5) % Plt Count (150-450) k/uL MPV Neutrophils % % Lymphocytes % % Monocytes % % Eosinophils % % Basophils % % Neutrophils # (1.3-7.7) k/uL Lymphocytes # (1.0-4.8) k/uL Monocytes # (0-1.0) k/uL Eosinophils # (0-0.7) k/uL Basophils # (0-0.2) k/uL Hypochromasia PT (10.0-12.5) sec INR (<1.2) Sodium (137-145) mmol/L Potassium (3.5-5.1) mmol/L Chloride (98-107) mmol/L Carbon Dioxide (22-30) mmol/L Anion Gap mmol/L BUN (9-20) mg/dL Creatinine (0.66-1.25) mg/dL Est GFR (CKD-EPI)AfAm (>60 ml/min/1.73 sqM) Est GFR (CKD-EPI)NonAf (>60 ml/min/1.73 sqM) Glucose (74-99) mg/dL POC Glucose (mg/dL) 193 H 142 H 333 H (70-110) mg/dL POC Glu General Repair Mechanic ID Ignacio, Leander Pierre, Leander Pierre, Leander Lactic Ac Sepsis Rflx Plasma Lactic Acid Mateusz (0.7-2.0) mmol/L Calcium (8.4-10.2) mg/dL Total Bilirubin (0.2-1.3) mg/dL AST (17-59) U/L ALT (4-49) U/L Alkaline Phosphatase (38-126) U/L Total Protein (6.3-8.2) g/dL Albumin (3.5-5.0) g/dL Salicylates mg/dL Acetaminophen ug/mL Serum Alcohol mg/dL 11/25/23 Range/Units 16:06 WBC (3.8-10.6) k/uL RBC (4.30-5.90) m/uL Hgb (13.0-17.5) gm/dL Hct (39.0-53.0) % MCV (80.0-100.0) fL MCH (25.0-35.0) pg MCHC (31.0-37.0) g/dL RDW (11.5-15.5) % Plt Count (150-450) k/uL MPV Neutrophils % % Lymphocytes % % Monocytes % % Eosinophils % % Basophils % % Neutrophils # (1.3-7.7) k/uL Lymphocytes # (1.0-4.8) k/uL Monocytes # (0-1.0) k/uL Eosinophils # (0-0.7) k/uL Basophils # (0-0.2) k/uL Hypochromasia PT (10.0-12.5) sec INR (<1.2) Sodium (137-145) mmol/L Potassium (3.5-5.1) mmol/L Chloride (98-107) mmol/L Carbon Dioxide (22-30) mmol/L Anion Gap mmol/L BUN (9-20) mg/dL Creatinine (0.66-1.25) mg/dL Est GFR (CKD-EPI)AfAm (>60 ml/min/1.73 sqM) Est GFR (CKD-EPI)NonAf (>60 ml/min/1.73 sqM) Glucose (74-99) mg/dL POC Glucose (mg/dL) 184 H (70-110) mg/dL POC Glu General Repair Mechanic ID Leander Pierre Lactic Ac Sepsis Rflx Plasma Lactic Acid Mateusz (0.7-2.0) mmol/L Calcium (8.4-10.2) mg/dL Total Bilirubin (0.2-1.3) mg/dL AST (17-59) U/L ALT (4-49) U/L Alkaline Phosphatase (38-126) U/L Total Protein (6.3-8.2) g/dL Albumin (3.5-5.0) g/dL Salicylates mg/dL Acetaminophen ug/mL Serum Alcohol mg/dL Critical Care Time Critical Care Time: Yes Total Critical Care Time: 35 Disposition Clinical Impression: Drug overdose, Suicide attempt by multiple drug overdose Disposition: ADMITTED IP TO THIS [facility] Condition: Serious Is patient prescribed a controlled substance at d/c from ED?: No Time of Disposition: 16:17
[2023-11-25] MEDS: SODIUM CHLORIDE 0.9% 1,000 ML IV ONE (13:15)
[2023-11-25 13:21] LABS: Glucose,Whole Blood 208 mg/dL (70-110)
[2023-11-25 13:21] LABS: Basophils % (A) 0 %; Eosinophils # (A) 0.1 k/uL (0-0.7); Eosinophils % (A) 1 %; HCT 43.5 % (39.0-53.0); HGB 13.2 gm/dL (13.0-17.5); Hypochromasia Slight; Lymphocytes # (A) 1.9 k/uL (1.0-4.8); Lymphocytes % (A) 27 %; MCH 29.3 pg (25.0-35.0); MCHC 30.4 g/dL (31.0-37.0); MCV 96.4 fL (80.0-100.0); Mean Platelet Volume 7.1; Monocytes # (A) 0.3 k/uL (0-1.0); Monocytes % (A) 5 %; Neutrophils # (A) 4.5 k/uL (1.3-7.7); Neutrophils % (A) 65 %; Platelet Count 332 k/uL (150-450); RBC 4.51 m/uL (4.30-5.90); RDW 14.7 % (11.5-15.5); WBC 6.9 k/uL (3.8-10.6)
[2023-11-25 13:42] LABS: ALT 21 U/L (4-49); AST 18 U/L (17-59); Acetaminophen <10.0 ug/mL; African American GFR (CKD) >90 (>60 ml/min/1.73 sqM); Albumin 3.6 g/dL (3.5-5.0); Alcohol <10 mg/dL; Alkaline Phosphatase 111 U/L (38-126); Anion Gap 12 mmol/L; Blood Urea Nitrogen 18 mg/dL (9-20); Calcium 9.6 mg/dL (8.4-10.2); Carbon Dioxide 18 mmol/L (22-30); Chloride 110 mmol/L (98-107); Glucose 237 mg/dL (74-99); Non-African American GFR(CKD) 79 (>60 ml/min/1.73 sqM); Potassium 3.6 mmol/L (3.5-5.1); Salicylate <1.0 mg/dL; Sodium 140 mmol/L (137-145); Total Bilirubin 0.2 mg/dL (0.2-1.3); Total Protein 6.2 g/dL (6.3-8.2)
[2023-11-25 13:49] LABS: INR 0.9 (<1.2); Prothrombin Time 10.4 sec (10.0-12.5)
[2023-11-25 13:57] LABS: Glucose,Whole Blood 193 mg/dL (70-110)
[2023-11-25] MEDS: SODIUM CHLORIDE 0.9% 500 ML 500 ML IV ONE (14:39)
[2023-11-25 14:42] LABS: Glucose,Whole Blood 142 mg/dL (70-110)
[2023-11-25] MEDS: SODIUM CHLORIDE 0.9% 1,000 ML IV SCH (15:14)
[2023-11-25 16:07] LABS: Glucose,Whole Blood 333 mg/dL (70-110)
[2023-11-25 16:07] LABS: Glucose,Whole Blood 184 mg/dL (70-110)
[2023-11-25] MEDS ORDERED: NALOXONE 0.4 MG/ML 1 ML VIAL IV PRN (16:10)
--- NOTE | 2023-11-25 16:16 | XR ---
EXAM: XR chest 1V portable CLINICAL INDICATION:Male, 48 years old with history of chf; [facility] COMPARISON: Chest x-ray 10/17/2014 TECHNIQUE: Chest single view. FINDINGS: Exam is limited by the patient's large body habitus. This appears to have increased significantly sin ce the prior examination. Lung volumes are low with crowding of bronchovascular markings and bibasilar atelectasis. Small pleural effusions cannot be excluded. No evidence of focal consolidation or pneumothorax. Heart appears moderately enlarged, likely exaggerated by the low lung volumes and portable technique. Mediastinum appears somewhat broadened, probably from lipomatosis. The margins are well-defined. Cent ral airways appear grossly patent. Suspect mild pulmonary vascular congestion and interstitial edema. No acute osseous abnormalities seen. Old nonunited right clavicular shaft fracture. There are likely remote right rib fracture deformities. IMPRESSION: 1. Low lung volume exam with bibasilar atelectasis. 2. Cardiomegaly with mild pulmonary congestive changes and possible small pleural effusions. Correla te clinically for mild/moderate CHF.
[2023-11-25 17:08] LABS: Glucose,Whole Blood 213 mg/dL (70-110)
[2023-11-25 18:26] LABS: Glucose,Whole Blood 204 mg/dL (70-110)
[2023-11-25 19:24] LABS: Glucose,Whole Blood 229 mg/dL (70-110)
[2023-11-25 21:33] LABS: Glucose,Whole Blood 242 mg/dL (70-110)
[2023-11-25 23:19] LABS: Glucose,Whole Blood 356 mg/dL (70-110)
[2023-11-26 00:35] LABS: Glucose,Whole Blood 254 mg/dL (70-110)
--- NOTE | 2023-11-26 00:41 | HP ---
HISTORY AND PHYSICAL CHIEF COMPLAINT: Overdose. HISTORY OF PRESENT ILLNESS: This is a 48-year-old gentleman with a past medical history of multiple medical problems including diabetes mellitus, chronic back pain, was admitted with intentional overdosage. The patient apparently is taking Seroquel, Ativan, insulin, and the patient was combative and restless. Poison Control was called. Currently, the patient is sedated, unable to give any coherent history. The patient will be closely monitored at this time. PAST MEDICAL HISTORY: Reviewed from the chart include diabetes mellitus, chronic back pain, anxiety, bipolar, depression, PTSD. Rest of the chart and rest of the history reviewed. HOME MEDICATIONS: Include oxybutynin, rest of medications reviewed. ALLERGIES: Fluoxetine. FAMILY HISTORY: Could not be taken. SOCIAL HISTORY: Could not be taken. REVIEW OF SYSTEMS: Could not be taken. PHYSICAL EXAMINATION: VITAL SIGNS: Pulse is 103, blood pressure 70/43, respirations 18. HEENT: Conjunctivae normal. NECK: No JVD. CARDIOVASCULAR: S1, S2. RESPIRATIONS: Breath sounds diminished at the bases. A few scattered rhonchi and crackles. ABDOMEN: Soft, nontender. LEGS: No edema. NERVOUS SYSTEM: Nonfocal. LABORATORY DATA: Lactic acid 5.4. Rest of the labs are noted. ASSESSMENT: 1. Status post intentional overdosage. Multiple medications. 2. History of anxiety, bipolar, posttraumatic stress disorder, schizophrenia disorder. 3. Diabetes mellitus, type 2. 4. Chronic back pain. RECOMMENDATION AND DISCUSSION: In this 48-year-old gentleman, who presented with multiple complex medical issues, we will monitor the patient closely. Continue the current medications, continue symptomatic treatment. Otherwise, I would recommend bolus fluids and blood pressure is not improving. I would recommend ICU admission and vasopressor support. Otherwise, continue rest of medications. Monitor blood sugars closely. Repeat labs. Prognosis guarded. Also recommend baseline evaluation including EKG and chest x-ray also. Prognosis guarded. Further recommendations to follow. MMODL / IJN: [id number] /
[2023-11-26 01:39] LABS: Amphetamine Screen,Urine Not Detected (NotDetected); Barbiturate Screen,Urine Not Detected (NotDetected); Benzodiazepines Screen,Urine Not Detected (NotDetected); Cocaine Screen,Urine Not Detected (NotDetected); Methadone Screen, Urine Not Detected (NotDetected); Opiate Screen,Urine Not Detected (NotDetected); Oxycodone Screen, Urine Not Detected (NotDetected); Phencyclidine Screen,Urine Not Detected (NotDetected); Tricyclic Antidepressant,Urine Detected (NotDetected); Urn Cannabinoid Scrn Not Detected (NotDetected)
[2023-11-26 01:49] LABS: Appearance,Urine Cloudy (Clear); Bacteria,Urine Many /hpf; Bilirubin,Urine Negative (Negative); Blood,Urine Trace (Negative); Budding Yeast,Urine Rare /hpf; Color,Urine Colorless; Glucose,Urine (UA) 4+ (Negative); Hyaline Casts,Urine 4 /lpf (0-2); Ketones,Urine Negative (Negative); Leukocyte Esterase,Urine Moderate (Negative); Mucus,Urine Rare /hpf; Nitrite,Urine Negative (Negative); Protein,Urine Trace (Negative); RBC,Urine 4 /hpf (0-5); Specific Gravity,Urine 1.023 (1.001-1.035); Squamous Epithelial Cell,Urine 1 /hpf (0-4); Urobilinogen,Urine <2.0 mg/dL (<2.0); WBC,Urine 65 /hpf (0-5)
[2023-11-26 02:46] LABS: Glucose,Whole Blood 263 mg/dL (70-110)
[2023-11-26 05:36] LABS: Glucose,Whole Blood 248 mg/dL (70-110)
[2023-11-26 07:06] LABS: Glucose,Whole Blood 235 mg/dL (70-110)
[2023-11-26 07:42] LABS: Basophils % (A) 0 %; Eosinophils # (A) 0.1 k/uL (0-0.7); Eosinophils % (A) 2 %; HCT 42.8 % (39.0-53.0); HGB 12.7 gm/dL (13.0-17.5); Hypochromasia Moderate; Lymphocytes # (A) 1.4 k/uL (1.0-4.8); Lymphocytes % (A) 22 %; MCH 28.9 pg (25.0-35.0); MCHC 29.8 g/dL (31.0-37.0); Mean Platelet Volume 7.2; Monocytes # (A) 0.4 k/uL (0-1.0); Monocytes % (A) 6 %; Neutrophils # (A) 4.5 k/uL (1.3-7.7); Neutrophils % (A) 68 %; Platelet Count 357 k/uL (150-450); RBC 4.41 m/uL (4.30-5.90); RDW 14.8 % (11.5-15.5); WBC 6.6 k/uL (3.8-10.6)
[2023-11-26 08:08] LABS: Carbon Dioxide 18 mmol/L (22-30); Chloride 115 mmol/L (98-107); Glucose 243 mg/dL (74-99); Potassium 4.1 mmol/L (3.5-5.1); Sodium 142 mmol/L (137-145)
[2023-11-26 08:09] LABS: ALT 17 U/L (4-49); AST 16 U/L (17-59); African American GFR (CKD) >90 (>60 ml/min/1.73 sqM); Albumin 3.2 g/dL (3.5-5.0); Alkaline Phosphatase 96 U/L (38-126); Anion Gap 9 mmol/L; Blood Urea Nitrogen 13 mg/dL (9-20); Non-African American GFR(CKD) >90 (>60 ml/min/1.73 sqM); Total Bilirubin 0.2 mg/dL (0.2-1.3); Total Protein 5.9 g/dL (6.3-8.2)
[2023-11-26 08:59] LABS: Glucose,Whole Blood 208 mg/dL (70-110)
[2023-11-26 12:14] LABS: Glucose,Whole Blood 171 mg/dL (70-110)
--- NOTE | 2023-11-26 13:47 | P.CNPUL ---
History of Present Illness Consult date: 11/26/23 Requesting physician: Jacky Martin Reason for consult: other (Critical care management) Chief complaint: Intentional overdose History of present illness: This is a 48-year-old male patient with a known history of diabetes mellitus, chronic and ongoing tobacco dependence, marijuana use, anxiety/depression, schizoaffective disorder, PTSD and previous suicide attempts. He was brought into the emergency room yesterday after suspected intentional overdose of possible Seroquel, Ativan and insulin. Chest x-ray revealed cardiomegaly with mild pulmonary vascular congestion and small effusions. Low lung volumes with bibasilar atelectasis. White count 6.6. Hemoglobin 12.7. Platelets 357. Sod ium 142. Potassium 4.1. Bicarb 18. BUN 13. Creatinine 0.72. Glucose 243. Urine drug screen positive for tricyclic antidepressants. Alcohol level less than 10. He is seen today in consultation in the emergency department. He is awake, alert, maintaining good O2 saturations in the mid to upper 90s on room air. He is afebrile. Hemodynamically stable. branch employment coordinator is at the bedside. Review of Systems REVIEW OF SYSTEMS: CONSTITUTIONAL: Denies any recent significant weight loss or weight gain. EYES: Denies change in vision. EARS, NOSE, MOUTH, THROAT: Denies headaches, denies sore throat. CARDIOVASCULAR: Denies chest pain, palpitations or syncopal episodes. RESPIRATORY: Denies shortness of breath, cough, congestion or hemoptysis. GASTROINTESTINAL: Denies change in appetite, denies abdominal pain GENITOURINARY: Denies hematuria, denies infections. MUSKULOSKELETAL: Denies pain, denies swelling. INTEGUMENTARY: Denies rash, denies eczema. NEUROLOGICAL: Denies recent memory loss, no recent seizure activity. PSYCHIATRIC: Positive for anxiety and depression. HEMATOLOGIC/LYMPHATIC: Denies anemia, denies enlarged lymph nodes. Past Medical History Past Medical History: Diabetes Mellitus Additional Past Medical History / Comment(s): chronic back pain. PUNTURED RIGHT LUNG POST ACCIDENT (CHEST-TUBE) History of Any Multi-Drug Resistant Organisms: None Reported Past Surgical History: Appendectomy Past Anesthesia/Blood Transfusion Reactions: Previous Problems w/ Anesthesia Additional Past Anesthesia/Blood Transfusion Reaction / Comment(s): AGITATION, PATIENT STATES HE "FREAKED OUT", TRIED TO PULL OUT TUBES. Past Psychological History: Anxiety, Bipolar, Depression, PTSD, Schizoaffective Disorder Smoking Status: Current every day smoker Past Alcohol Use History: Occasional Past Drug Use History: Marijuana - Past Family History Mother Family Medical History: Diabetes Mellitus Medications and Allergies Home Medications Medication Instructions Recorded Confirmed Type INSULIN LISPRO (HumaLOG) [humaLOG] 15 - 20 units SQ DAILY PRN 07/14/20 11/25/23 History Gabapentin 800 mg PO 5XD 05/06/21 11/25/23 History Sildenafil Citrate 100 mg PO DAILY PRN 05/06/21 11/25/23 History DULoxetine HCL [Cymbalta] 60 mg PO BID 11/25/23 11/25/23 History HYDROcodone/APAP 10-325MG [[place] 1 tab PO Q6HR PRN 11/25/23 11/25/23 History 10-325] Insulin Glargine,Hum.rec.anlog 48 units SQ DAILY 11/25/23 11/25/23 History [Toujeo Max Solostar] Methylphenidate HCl [Ritalin] 20 mg PO TID 11/25/23 11/25/23 History Omeprazole [PriLOSEC] 40 mg PO DAILY 11/25/23 11/25/23 History Oxybutynin Chloride [oxyBUTYnin 15 mg PO DAILY 11/25/23 11/25/23 History chloride ER] Pioglitazone [Actos] 30 mg PO DAILY 11/25/23 11/25/23 History QUEtiapine FUMARATE [SEROquel] 400 mg PO HS 11/25/23 11/25/23 History Zolpidem [Ambien] 10 mg PO HS 11/25/23 11/25/23 History clonazePAM [KlonoPIN] 0.5 mg PO DAILY PRN 11/25/23 11/25/23 History rOPINIRole HCL [Requip] 1.5 mg PO HS 11/25/23 11/25/23 History Allergies Allergy/AdvReac Type Severity Reaction Status Date / Time fluoxetine AdvReac Suicidal Verified 11/25/23 13:31 Physical Exam Vitals: Vital Signs Temp Pulse Resp BP Pulse Ox 11/26/23 13:15 100 19 135/55 97 11/26/23 12:05 97.8 F 98 20 125/64 95 11/26/23 10:02 92 17 133/77 95 11/26/23 08:57 97.6 F 99 17 148/88 98 11/26/23 08:02 98.0 F 103 H 18 119/67 95 11/26/23 06:00 116 H 19 159/103 98 11/26/23 05:00 94 18 146/79 94 L 11/26/23 04:00 96 18 121/74 94 L 11/26/23 03:00 98 18 135/73 96 11/26/23 02:00 94 18 164/85 94 L 11/26/23 01:00 110 H 19 157/72 96 11/26/23 00:00 102 H 17 144/79 98 11/25/23 23:00 101 H 19 144/79 98 11/25/23 22:10 96 19 152/97 99 11/25/23 21:03 94 19 153/77 11/25/23 18:43 96 18 151/80 97 11/25/23 17:58 104 H 18 110/79 98 11/25/23 17:13 114 H 18 96/66 98 11/25/23 16:30 110 H 18 93/42 98 11/25/23 16:15 108 H 18 104/52 99 11/25/23 16:07 106 H 18 79/60 98 11/25/23 15:23 109 H 18 91/52 97 11/25/23 15:14 112 H 18 73/40 95 11/25/23 14:47 104 H 20 79/44 94 L 11/25/23 14:27 103 H 18 70/46 93 L 11/25/23 13:59 111 H 20 82/59 95 11/25/23 13:48 110 H 18 76/57 93 L GENERAL EXAM: Alert, 48-year-old male, on room air, comfortable in no apparent distress. HEAD: Normocephalic. EYES: Normal reaction of pupils, equal size. NOSE: Clear with pink turbinates. THROAT: No erythema or exudates. NECK: No masses, no JVD. CHEST: No chest wall deformity. LUNGS: Equal air entry with no crackles, wheeze, rhonchi or dullness. CVS: S1 and S2 normal with no audible murmur, regular rhythm. ABDOMEN: No hepatosplenomegaly, normal bowel sounds, no guarding or rigidity. SPINE: No scoliosis or deformity SKIN: No rashes CENTRAL NERVOUS SYSTEM: No focal deficits, tone is normal in all 4 extremities. EXTREMITIES: There is no peripheral edema. No clubbing, no cyanosis. Peripheral pulses are intact. Results - Laboratory Findings CBC and BMP: 11/26/23 07:14 11/26/23 07:14 PT/INR, D-dimer PT 10.4 sec (10.0-12.5) 11/25/23 13:08 INR 0.9 (<1.2) 11/25/23 13:08 Abnormal lab findings: Abnormal Labs 11/25/23 11/25/23 11/25/23 13:08 13:08 13:08 Hgb MCHC 30.4 L Chloride 110 H Carbon Dioxide 18 L Glucose 237 H POC Glucose (mg/dL) Plasma Lactic Acid Mateusz 5.4 H* AST Total Protein 6.2 L Albumin Urine Protein Urine Glucose (UA) Urine Blood Ur Leukocyte Esterase Urine WBC Urine WBC Clumps Urine Bacteria Hyaline Casts Urine Mucus Urine Yeast (Budding) U Tricyclic Antidepress 11/25/23 11/25/23 11/25/23 13:20 13:56 14:40 Hgb MCHC Chloride Carbon Dioxide Glucose POC Glucose (mg/dL) 208 H 193 H 142 H Plasma Lactic Acid Mateusz AST Total Protein Albumin Urine Protein Urine Glucose (UA) Urine Blood Ur Leukocyte Esterase Urine WBC Urine WBC Clumps Urine Bacteria Hyaline Casts Urine Mucus Urine Yeast (Budding) U Tricyclic Antidepress 11/25/23 11/25/23 11/25/23 16:05 16:06 17:06 Hgb MCHC Chloride Carbon Dioxide Glucose POC Glucose (mg/dL) 333 H 184 H 213 H Plasma Lactic Acid Mateusz AST Total Protein Albumin Urine Protein Urine Glucose (UA) Urine Blood Ur Leukocyte Esterase Urine WBC Urine WBC Clumps Urine Bacteria Hyaline Casts Urine Mucus Urine Yeast (Budding) U Tricyclic Antidepress 11/25/23 11/25/23 11/25/23 18:25 19:22 21:31 Hgb MCHC Chloride Carbon Dioxide Glucose POC Glucose (mg/dL) 204 H 229 H 242 H Plasma Lactic Acid Mateusz AST Total Protein Albumin Urine Protein Urine Glucose (UA) Urine Blood Ur Leukocyte Esterase Urine WBC Urine WBC Clumps Urine Bacteria Hyaline Casts Urine Mucus Urine Yeast (Budding) U Tricyclic Antidepress 11/25/23 11/26/23 11/26/23 23:17 00:34 00:57 Hgb MCHC Chloride Carbon Dioxide Glucose POC Glucose (mg/dL) 356 H 254 H Plasma Lactic Acid Mateusz AST Total Protein Albumin Urine Protein Trace H Urine Glucose (UA) 4+ H Urine Blood Trace H Ur Leukocyte Esterase Moderate H Urine WBC 65 H Urine WBC Clumps Moderate H Urine Bacteria Many H Hyaline Casts 4 H Urine Mucus Rare H Urine Yeast (Budding) Rare H U Tricyclic Antidepress Detected H 11/26/23 11/26/23 11/26/23 02:43 05:34 07:05 Hgb MCHC Chloride Carbon Dioxide Glucose POC Glucose (mg/dL) 263 H 248 H 235 H Plasma Lactic Acid Mateusz AST Total Protein Albumin Urine Protein Urine Glucose (UA) Urine Blood Ur Leukocyte Esterase Urine WBC Urine WBC Clumps Urine Bacteria Hyaline Casts Urine Mucus Urine Yeast (Budding) U Tricyclic Antidepress 11/26/23 11/26/23 11/26/23 07:14 07:14 08:55 Hgb 12.7 L MCHC 29.8 L Chloride 115 H Carbon Dioxide 18 L Glucose 243 H POC Glucose (mg/dL) 208 H Plasma Lactic Acid Mateusz AST 16 L Total Protein 5.9 L Albumin 3.2 L Urine Protein Urine Glucose (UA) Urine Blood Ur Leukocyte Esterase Urine WBC Urine WBC Clumps Urine Bacteria Hyaline Casts Urine Mucus Urine Yeast (Budding) U Tricyclic Antidepress 11/26/23 12:12 Hgb MCHC Chloride Carbon Dioxide Glucose POC Glucose (mg/dL) 171 H Plasma Lactic Acid Mateusz AST Total Protein Albumin Urine Protein Urine Glucose (UA) Urine Blood Ur Leukocyte Esterase Urine WBC Urine WBC Clumps Urine Bacteria Hyaline Casts Urine Mucus Urine Yeast (Budding) U Tricyclic Antidepress - Diagnostic Findings Chest x-ray: image reviewed Assessment and Plan Assessment: Intentional overdose of possible Seroquel, Ativan, insulin. Currently awake and alert on room air History of previous suicide attempt History of anxiety/depression History of bipolar disorder, gets affective disorder History of posttraumatic stress disorder Diabetes mellitus Chronic tobacco dependence Marijuana use History of alcohol use : The patient was seen and evaluated Chest x-ray and labs reviewed Currently awake and alert Stable and on room air Psychiatry consult pending No need for ICU admission We will continue to follow and make further recommendations based on his clinical status I have personally seen and examined the patient, performed the documentation and the assessment and plan as written. Number of minutes spent on the visit: 20.
--- NOTE | 2023-11-26 13:51 | P.CN ---
Psychiatric Consult - . Consult date: 11/26/23 Consult:: 11/26/23 12:17 IDENTIFYING DATA: This patient is a 48-year-old employed currently male presenting after suicide attempt REASON FOR REFERRAL: Psychiatry was consulted for overdose HISTORY OF PRESENT ILLNESS: The patient presented to the hospital on 11/25/2023 after overdose with numerous medications. He has been admitted onto ICU and subsequently the medical floor for further stabilization. Patient was seen bedside this afternoon, with sitter present nearby. He reports having attempted suicide with overdose on Ambien, Ritalin, Seroquel, and Cymbalta. He states that the trigger was his wanting a divorce. He admits that this was an intentional overdose attempt to end his life. He says "I don't want to live anymore ". He is currently "paste that it did not work". Patient continues to express suicidal ideation at this moment but says "I'm not going to tell you what I want to do ". Patient is intermittently irritable during the interview but reports that he has a history of schizophrenia and has also been experiencing command auditory hallucinations to harm himself ever since he realized his said she would like to divorce him. He states that he was at home in a room by himself (his was home) when he grabbed various bottles of meds and started overdosing with them. He reports having told his of what he did afterwards "to show her that my blood is on her hands" and is under the impression that she called EMS for him. Patient is also stressed at potentially having nowhere to live since his plans to kick him out of the home. Patient reports having fair mood in general but that the recent interpersonal conflict with his has caused his mood to be angry and sad. He reports trouble sleeping and said he had a sleep study completed recently. He endorses fair appetite. At this time patient denies any homicidal ideations, intent or plan. Patient denies any visual hallucinations and denies any paranoia. Patients denies using any substances at this time. UDS positive for TCA Per [facility], patient has been receiving the following controlled substances in October 2023 from this provider: [facility] ([id number] [address]) Methylphenidate 20 Mg Tablet Last filled 11/22/2023; last written 09/25/2023; Qty 90.00 for 30 days. Pharmacy: [facility] ([id number]) Clonazepam 0.5 Mg Tablet Last filled 11/21/2023; last written 11/20/2023; Qty 30.00 for 30 days. Pharmacy: [facility] ([id number]) Zolpidem Tartrate 10 Mg Tablet Last filled 11/20/2023; last written 11/20/2023; Qty 30.00 for 30 days. Pharmacy: [facility] ([id number]) Gabapentin 800 Mg Tablet Last filled 11/07/2023; last written 06/21/2023; Qty 360.00 for 72 days. Pharmacy: [facility] ([id number]) PAST PSYCHIATRIC HISTORY: patient reports a long history of mental illness and says he used to be a patient at [facility], but since he began working there, Steffany KEATON has been prescribing his psychotropic medications. Patient reports compliance with his psychotropic medication regimen outpatient. He is currently on Ritalin 20 mg 3 times a day, Requip 1.5 mg at bedtime, Ambien 10 mg at bedtime, Klonopin 0.5 mg daily when necessary, Seroquel 400 mg at bedtime, Cymbalta 60 mg twice a day, and gabapentin 800 mg 5 times a day. He reports 4 past hospitalizations. PAST MEDICAL HISTORY: Past Medical History: Diabetes Mellitus Additional Past Medical History / Comment(s): chronic back pain. PUNTURED RIGHT LUNG POST ACCIDENT (CHEST-TUBE) History of Any Multi-Drug Resistant Organisms: None Reported Past Surgical History: Appendectomy Past Anesthesia/Blood Transfusion Reactions: Previous Problems w/ Anesthesia Additional Past Anesthesia/Blood Transfusion Reaction / Comment(s): AGITATION, PATIENT STATES HE "FREAKED OUT", TRIED TO PULL OUT TUBES. Past Psychological History: Anxiety, Bipolar, Depression, PTSD, Schizoaffective Disorder Smoking Status: Current every day smoker Past Alcohol Use History: Occasional Past Drug Use History: Marijuana ALLERGIES: as per EMR. CHEMICAL DEPENDENCY HISTORY: as per HPI. Denies alcohol use. He reports vaping tobacco occasionally. Denies other substance use FAMILY PSYCHIATRIC/SUBSTANCE USE HISTORY: "nuts on both sides" SOCIAL HISTORY: Patient reports having been for 17 years and his currently wants a divorce. He lives with his , son, and one daughter. 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 He has a history of legal problems 15 years ago where he was charged with home invasion. MENTAL STATUS EXAM: General Appearance: Patient appears to be stated age is somnolent and superficially cooperative. Patient appears to have poor hygiene and grooming wearing hospital gown with poor eye contact. Behavior: Patient is calmly lying in bed without any agitated behavior. Speech: Patient's speech is fluent and nonpressured. Mood/Affect: Patient reports their mood is "pissed", affect is congruent Suicidality/Homicidality: Patient denies having any homicidal ideation intent or plan. Endorses suicidal ideation with plan and would not divulge plan Perceptions: Patient denies any visual hallucinations. Endorses auditory hallucinations Though content/process: There is no evidence of any delusional thought content and thought process is linear and goal-directed. Memory and concentration: AOX3, grossly intact for the purposes of this session. Judgment and insight: Poor, impulsive IMPRESSIONS: Schizoaffective disorder - per history Cluster B traits PLAN: -At this time patient DOES meet criteria for inpatient psychiatric admission. -Would recommend the following medication changes/additions: Hold all psycho tropic medications until patient is psychiatrically hospitalized and may be titrated then Do NOT agree with outpatient mixed regimen of stimulants, benzos, hypnotics, given potential for overdose and abuse. -Continue 1:1 sitter for safety -Cannot leave AMA at this time. Patient will need an active petition and certification to be maintained by primary team -When medically stable, patient is eligible for transfer to a psych bed when available. -Communicated plan to patient's nurse- of note, patient requests for his to be called to get him home clothing and RN was requested to do so. Pt threatened to resist hospitalization if he did not have his home clothing. -Psychiatry will sign off at this time -Please contact with any questions.
[2023-11-26] MEDS: FUROSEMIDE 10 MG/ML 2 ML VIAL IV ONE (14:04)
[2023-11-26] MEDS: HEPARIN SODIUM,PORCINE 5,000 UNIT/ML 1 ML VIAL SQ SCH (14:05)
[2023-11-26] MEDS: INSULIN DETEMIR (LEVEMIR) 100 UNIT/ML SYR SQ SCH (14:05)
[2023-11-26 14:06] LABS: Glucose,Whole Blood 164 mg/dL (70-110)
[2023-11-26] MEDS: TOBRAMYCIN 0.3% OPHTH OINT 3.5 GM TUBE BOTH EYES SCH (15:01)
[2023-11-26] MEDS: NICOTINE 21MG/24HR PATCH TRANSDERM SCH (18:39)
--- NOTE | 2023-11-26 23:39 | PN ---
PROGRESS NOTE DATE OF SERVICE: 11/26/2023 SUBJECTIVE: This is a 48-year-old gentleman admitted with overdose of multiple medications and was hypotensive yesterday. The patient is combative and restless today. The patient is still slightly drowsy. The patient had bilateral leg swelling, right more than the left, possibly indicating some conjunctivitis. Blood sugar is elevated. PAST MEDICAL HISTORY: Reviewed. REVIEW OF SYSTEMS: Fourteen-point review is negative except as mentioned earlier. CURRENT MEDICATIONS: Reviewed, noted Narcan. PHYSICAL EXAMINATION: VITAL SIGNS: Pulse is 92, blood pressure 133/70, respirations 17. HEENT: Conjunctivae normal. Facial puffiness present. CARDIOVASCULAR: S1, S2. RESPIRATIONS: A few scattered rhonchi. ABDOMEN: Soft. NERVOUS SYSTEM: Nonfocal. LABORATORY DATA: Reviewed. ASSESSMENT: 1. Status post intentional overdosage of multiple medications. 2. Suicidal ideations. 3. Bilateral conjunctivitis. 4. Anxiety, bipolar, posttraumatic stress disorder, schizophrenia. 5. Diabetes mellitus, type 2. 6. Chronic back pain. 7. Multiple medical issues. RECOMMENDATIONS AND DISCUSSION: Recommend to continue current management and continue symptomatic treatment, otherwise at this time, I would recommend resume some other medications. We will stop the IV fluids and eyedrops. Psychiatry evaluation. Prognosis guarded. Further recommendations to follow. MMODL / IJN: [id number] /
[2023-11-27 02:07] LABS: Glucose,Whole Blood 144 mg/dL (70-110)
[2023-11-27 05:56] LABS: Glucose,Whole Blood 122 mg/dL (70-110)
[2023-11-27] MEDS: PANTOPRAZOLE 40 MG TABLET PO SCH (06:21)
[2023-11-27] MEDS: OXYBUTYNIN 15 MG TAB.ER.24 PO SCH (08:17)
[2023-11-27] MEDS: PIOGLITAZONE 30 MG TAB PO SCH (08:17)
[2023-11-27] MEDS: METOPROLOL TARTRATE 50 MG TAB PO SCH (11:10)
[2023-11-27 11:11] LABS: Glucose,Whole Blood 252 mg/dL (70-110)
[2023-11-27] MEDS ORDERED: DEXTROSE 50% SYRINGE 50 ML IVP PRN ×2 (14:12)
[2023-11-27 16:29] LABS: Glucose,Whole Blood 230 mg/dL (70-110)
[2023-11-27] MEDS: ALPRAZolam 0.25 MG TAB PO PRN (17:28)
[2023-11-27] MEDS: INSULIN ASPART (NovoLOG) 100 UNIT/ML VIAL SQ SCH (17:28)
[2023-11-27 20:32] LABS: Glucose,Whole Blood 234 mg/dL (70-110)
[2023-11-28 05:30] LABS: Glucose,Whole Blood 232 mg/dL (70-110)
[2023-11-28 08:14] LABS: Basophils # (A) 0.04 X 10*3/uL (0.00-0.10); Basophils % (A) 0.7 %; Eosinophils # (A) 0.07 X 10*3/uL (0.04-0.35); Eosinophils % (A) 1.2 %; HCT 45.3 % (39.6-50.0); HGB 14.2 g/dL (13.0-17.0); Lymphocytes # (A) 1.96 X 10*3/uL (0.90-5.00); Lymphocytes % (A) 33.5 %; MCH 29.4 pg (27.0-32.0); MCHC 31.3 g/dL (32.0-37.0); MCV 93.8 FL (80.0-97.0); Mean Platelet Volume 10.4 FL (9.5-12.2); Monocytes # (A) 0.51 X 10*3/uL (0.20-1.00); Monocytes % (A) 8.7 %; NRBC Per 100 WBC 0 X 10*3/uL (0.00-0.01); Neutrophils # (A) 3.22 X 10*3/uL (1.80-7.70); Platelet Count 386 X 10*3/uL (140-440); RBC 4.83 X 10*6/uL (4.40-5.60); WBC 5.85 X 10*3/uL (4.50-10.00)
[2023-11-28 08:36] LABS: ALT 14 U/L (10-49); AST 12 U/L (14-35); Albumin 3.8 g/dL (3.8-4.9); Albumin/Globulin Ratio 1.58 Ratio (1.60-3.17); Alkaline Phosphatase 80 U/L (41-126); BUN/Creat Ratio 10.25 Ratio (12.00-20.00); Blood Urea Nitrogen 8.2 mg/dL (9.0-27.0); Calcium 9.3 mg/dL (8.7-10.3); Chloride 107 mmol/L (96-109); Globulin 2.4 g/dL (1.6-3.3); Glucose 243 mg/dL (70-110); Potassium 4.4 mmol/L (3.5-5.5); Sodium 141 mmol/L (135-145); Total Bilirubin <0.2 mg/dL (0.3-1.2); Total Protein 6.2 g/dL (6.2-8.2)
[2023-11-28 08:42] VITALS: RESP 16
--- NOTE | 2023-11-28 09:48 | PN ---
PROGRESS NOTE DATE OF SERVICE: 11/27/2023 This is a 48-year-old gentleman, who was admitted with intentional overdosage, also had hypotension. No chest pain. No palpitation. The patient is extremely anxious. PHYSICAL EXAMINATION: VITAL SIGNS: Pulse is 106, blood pressure , respirations 16. CHEST: Clear to auscultation. CARDIOVASCULAR: S1, S2. ABDOMEN: Soft. NERVOUS SYSTEM: Nonfocal. LABORATORY DATA: Glucose 256. Rest of labs are noted. ASSESSMENT: 1. Status post intentional overdose of multiple medications. 2. Suicidal ideation. 3. Bilateral conjunctivitis, improved. 4. Anxiety, bipolar, posttraumatic stress disorder, schizophrenia. 5. Diabetes mellitus type 2. 6. Chronic back pain. 7. Hypertension. 8. Multiple medical issues. RECOMMENDATIONS: Recommend to continue current management, continue symptomatic treatment, otherwise resume some of the home medication. Monitor blood sugars closely, and otherwise, rest of the psych medications per Psych. Further recommendations to follow. MMODL / IJN: [id number] /
[2023-11-28 11:27] LABS: Glucose,Whole Blood 277 mg/dL (70-110)
--- NOTE | 2023-11-28 15:25 | P.DS ---
Providers Date of admission: 11/25/23 16:12 Expected date of discharge: 11/28/23 Attending physician: Jacky Martin Consults: 11/25/23 16:10 Consult Physician Routine Consulting Provider: Dick Smith Consult Reason/Comments: Overdose Do you want consulting provider notified?: Yes 11/25/23 16:11 Consult Physician Stat Consulting Provider: Maury Spring Consult Reason/Comments: ICU care Do you want consulting provider notified?: Already Contacted Primary care physician: Mireya Elliott Hospital Course: Final diagnosis Intentional overdose of multiple medications Severe depression with suicidal ideation Bilateral conjunctivitis, improved Anxiety, bipolar, PTSD, schizophrenia history Diabetes mellitus, type II, uncontrolled with hyperglycemia Chronic back pain Obesity with a BMI of 38.8 Hypertension history Continued ongoing nicotine dependence THC use GI prophylaxis DVT prophylaxis Full code Discharge disposition Patient is being transferred in a stable condition with guarded prognosis to 3 W. inpatient psychiatric unit. Patient will follow-up with Dr. Mireya Elliott in the outpatient setting upon discharge. Patient is to follow-up with primary care provider outpatient as well as [facility] as scheduled. Total time taken is greater than 35 minutes. Hospital course This is a 48-year-old male who was recently admitted with suicidal ideation and severe depression petitioned being closely monitored. Patient has been evaluated by psychiatry recommending inpatient psychiatric services and patient agreeable. Patient was on the medical floor being closely monitored and medically stable for transfer to psych for further psychiatric care and evaluation. Please refer to consultation notes for further HPI. Currently no reports of chest pain, shortness of breath, or palpitations. Patient is afebrile. No reports of nausea or vomiting and patient is tolerating diet. Patient will be going to 3 W. psychiatric unit today. Guarded prognosis Physical exam: Gen: This is a 48-year-old male who is awake, alert and oriented x 3, well- developed, well-nourished, tearful, obese HEENT: Head is atraumatic, normocephalic. Pupils equal, round. Sclerae is ani cteric. NECK: Supple. No JVD. No lymphadenopathy. No thyromegaly. LUNGS: Clear to auscultation. No wheezes or rhonchi. No intercostal retractions. HEART: Regular rate and rhythm. No murmur. ABDOMEN: Soft. Obese. Bowel sounds are present. No masses. No tenderness. EXTREMITIES: No pedal edema. No calf tenderness. NEUROLOGICAL: Patient is awake, alert and oriented x3. Cranial nerves 2 through 12 are grossly intact. Please refer to medication reconciliation sheet for a list of medications. The impression and plan of care has been dictated by Jerri Paula, Nurse Practitioner as directed. Dr. Lane MD I have performed a history and examination and MDM of this patient, discussed the same with the dictator, and agree with the dictator's assessment and plan as written ,documented as a scribe. Based on total visit time, I have performed more than 50% of the visit. Patient Condition at Discharge: Fair Plan - Discharge Summary Discharge Rx Participant: No New Discharge Prescriptions: New RX: Nicotine 21Mg/24Hr Patch [Habitrol] 1 patch TRANSDERM DAILY patch RX: Metoprolol Tartrate [Lopressor] 50 mg PO BID tab RX: INSULIN ASPART (NovoLOG) [NovoLOG (formulary)] 0 unit SQ ACHS each Continue RX: Zolpidem [Ambien] 10 mg PO HS RX: Omeprazole [PriLOSEC] 40 mg PO DAILY RX: DULoxetine HCL [Cymbalta] 60 mg PO BID RX: Oxybutynin Chloride [oxyBUTYnin chloride ER] 15 mg PO DAILY RX: Sildenafil Citrate 100 mg PO DAILY PRN PRN Reason: E.D. RX: Gabapentin 800 mg PO 5XD RX: Insulin Glargine,Hum.rec.anlog [Toujeo Max Solostar] 48 units SQ DAILY RX: HYDROcodone/APAP 10-325MG [[place] 10-325] 1 tab PO Q6HR PRN PRN Reason: Pain RX: rOPINIRole HCL [Requip] 1.5 mg PO HS RX: clonazePAM [KlonoPIN] 0.5 mg PO DAILY PRN PRN Reason: Anxiety RX: QUEtiapine FUMARATE [SEROquel] 400 mg PO HS RX: Pioglitazone [Actos] 30 mg PO DAILY RX: Methylphenidate HCl [Ritalin] 20 mg PO TID Discontinued INSULIN LISPRO (HumaLOG) [humaLOG] 15 - 20 units SQ DAILY PRN PRN Reason: HIGH BLOOD SUGAR Discharge Medication List RX: Gabapentin 800 mg PO 5XD 05/06/21 [History] RX: Sildenafil Citrate 100 mg PO DAILY PRN 05/06/21 [History] RX: DULoxetine HCL [Cymbalta] 60 mg PO BID 11/25/23 [History] RX: HYDROcodone/APAP 10-325MG [[place] 10-325] 1 tab PO Q6HR PRN 11/25/23 [History] RX: Insulin Glargine,Hum.rec.anlog [Toujeo Max Solostar] 48 units SQ DAILY 10/28 [History] RX: Methylphenidate HCl [Ritalin] 20 mg PO TID 11/25/23 [History] RX: Omeprazole [PriLOSEC] 40 mg PO DAILY 11/25/23 [History] RX: Oxybutynin Chloride [oxyBUTYnin chloride ER] 15 mg PO DAILY 11/25/23 [History] RX: Pioglitazone [Actos] 30 mg PO DAILY 11/25/23 [History] RX: QUEtiapine FUMARATE [SEROquel] 400 mg PO HS 11/25/23 [History] RX: Zolpidem [Ambien] 10 mg PO HS 11/25/23 [History] RX: clonazePAM [KlonoPIN] 0.5 mg PO DAILY PRN 11/25/23 [History] RX: rOPINIRole HCL [Requip] 1.5 mg PO HS 11/25/23 [History] RX: INSULIN ASPART (NovoLOG) [NovoLOG (formulary)] 0 unit SQ ACHS each 11/28/23 [Rx] RX: Metoprolol Tartrate [Lopressor] 50 mg PO BID tab 11/28/23 [Rx] RX: Nicotine 21Mg/24Hr Patch [Habitrol] 1 patch TRANSDERM DAILY patch 11/28/23 [Rx] Follow up Appointment(s)/Referral(s): Mireya Elliott DO [Primary Care Provider] - 1-2 days Activity/Diet/Wound Care/Special Instructions: Patient is medically stable for transfer to inpatient psychiatric unit Discharge Disposition: TRANSFER TO PSYCH HOSP/UNIT
[2023-11-28 15:47] VITALS: TEMP 98.3
[2023-11-28 16:58] LABS: Glucose,Whole Blood 243 mg/dL (70-110)
[2023-11-28 18:32] VITALS: BP 160/78; PULSE 97
[2023-11-28 20:07] LABS: Glucose,Whole Blood 221 mg/dL (70-110)
== END 2023-11-28 22:16 | DRG 918 ==
LOC: EC 12:41 → 2SICU 16:12 → 4SSUR 11-26 08:52
PROVIDERS: ADMIT Hospitalist; ATTEND Hospitalist
DX: T43.592A Poisoning by other antipsychotics and neuroleptics, intentional self-harm, initial encounter (principal); J98.11 Atelectasis; T38.3X2A Poisoning by insulin and oral hypoglycemic [antidiabetic] drugs, intentional self-harm, initial encounter; E66.9 Obesity, unspecified; Z68.38 Body mass index [BMI] 38.0-38.9, adult; H10.9 Unspecified conjunctivitis; I10 Essential (primary) hypertension; G89.29 Other chronic pain; I95.9 Hypotension, unspecified; M54.9 Dorsalgia, unspecified; I11.9 Hypertensive heart disease without heart failure; F25.9 Schizoaffective disorder, unspecified; F17.200 Nicotine dependence, unspecified, uncomplicated; E11.65 Type 2 diabetes mellitus with hyperglycemia; F41.9 Anxiety disorder, unspecified; R45.1 Restlessness and agitation; F31.9 Bipolar disorder, unspecified; F43.10 Post-traumatic stress disorder, unspecified; Z88.8 Allergy status to other drugs, medicaments and biological substances; Z11.52 Encounter for screening for COVID-19; Z28.311 Partially vaccinated for COVID-19; Z91.51 Personal history of suicidal behavior; Z79.899 Other long term (current) drug therapy; Z79.84 Long term (current) use of oral hypoglycemic drugs; Z79.4 Long term (current) use of insulin; Z63.0 Problems in relationship with spouse or partner
CPT/HCPCS: 36415; 71045; 80053; 80143; 80179; 80306; 80320; 81001; 82075; 83036; 83605; 85025; 85610; 87636; 93005; 94760; 96361; 96372; 96374; 99291

== ENCOUNTER 2023-11-28 16:33 | Inpatient (IN) | payer OTHER ==
[2023-11-28] MEDS ORDERED: traZODone HCL 50 MG TAB PO PRN (18:52)
[2023-11-28] MEDS ORDERED: OLANZapine 5 MG TAB PO PRN (18:52)
[2023-11-28] MEDS ORDERED: MAGNESIUM HYDROXIDE 2,400 MG/30 ML CUP PO PRN (18:52)
[2023-11-28] MEDS ORDERED: DEXTROSE 50% SYRINGE 50 ML IVP PRN ×2 (19:01)
[2023-11-28] MEDS ORDERED: HYDROcodone/APAP 10-325MG 1 EACH TAB PO PRN (19:05)
[2023-11-28] MEDS: INSULIN ASPART (NovoLOG) 100 UNIT/ML VIAL SQ SCH (22:00)
[2023-11-28] MEDS: METOPROLOL TARTRATE 50 MG TAB PO SCH (23:14)
[2023-11-28] MEDS: DULoxetine HCL 60 MG CAPSULE.DR PO SCH (23:19)
[2023-11-28] MEDS: GABAPENTIN 400 MG CAP PO SCH (23:20)
[2023-11-28] MEDS: QUEtiapine 200 MG TAB PO SCH (23:20)
[2023-11-28] MEDS: DULoxetine HCL 30 MG CAPSULE.DR PO SCH (23:31)
[2023-11-28] MEDS: clonazePAM 0.5 MG TAB PO PRN (23:31)
[2023-11-28] MEDS: GABAPENTIN 100 MG CAP PO SCH (23:31)
[2023-11-28] MEDS: QUEtiapine 100 MG TAB PO SCH (23:34)
[2023-11-29 07:47] LABS: Glucose,Whole Blood 255 mg/dL (70-110)
[2023-11-29] MEDS: NICOTINE 21MG/24HR PATCH TRANSDERM SCH (08:08)
[2023-11-29] MEDS: INSULIN DETEMIR (LEVEMIR) 100 UNIT/ML SYR SQ SCH ×2 (08:08→20:41)
[2023-11-29] MEDS: OXYBUTYNIN 15 MG TAB.ER.24 PO SCH (08:09)
[2023-11-29] MEDS: PIOGLITAZONE 30 MG TAB PO SCH (08:09)
[2023-11-29] MEDS: PANTOPRAZOLE 40 MG TABLET PO SCH (08:09)
[2023-11-29 09:51] LABS: LDL Cholesterol,Calculated 158.4 mg/dL (0.0-131.0)
--- NOTE | 2023-11-29 12:33 | P.HP ---
Psychiatric H&P - . H&P Date: 11/29/23 History & Physical: Allergies Allergy/AdvReac Type Severity Reaction Status Date / Time fluoxetine AdvReac Suicidal Verified 11/29/23 01:00 Vital Signs Temp 97.9 F 11/29/23 06:52 Pulse 109 H 11/29/23 08:13 Resp 16 11/29/23 06:52 BP 107/58 11/29/23 08:13 Pulse Ox 97 11/29/23 06:52 FiO2 Intake & Output 11/28/23 11/29/23 11/29/23 18:59 06:59 18:59 Weight 108.9 kg 105.8 kg Laboratory Last Values POC Glucose (mg/dL) 255 mg/dL (70-110) H 11/29/23 07:42 POC Glu [place] Worker ID Yvonne Reyes 11/29/23 07:42 11/29/23 09:26 IDENTIFYING DATA: Patient is a This patient is a 48-year-old employed currently male presenting after suicide attempt Lives with , and 2 children. 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 HPI: Patient presented to the hospital The patient presented to the hospital on 11/25/2023 after overdose with numerous medications. He was admitted onto ICU and subsequently the medical floor for further stabilization. as per consult note by Dr. Smith, "Patient was seen bedside this afternoon, with sitter present nearby. He reports having attempted suicide with overdose on Ambien, Ritalin, Seroquel, and Cymbalta. He states that the trigger was his wanting a divorce. He admits that this was an intentional overdose attempt to end his life. He says "I don't want to live anymore ". He is currently "paste that it did not work". Patient continues to express suicidal ideation at this moment but says "I'm not going to tell you what I want to do ". Patient is intermittently irritable during the interview but reports that he has a history of schizophrenia and has also been experiencing command auditory hallucinations to harm himself ever since he realized his said she would like to divorce him. He states that he was at home in a room by himself (his was home) when he grabbed various bottles of meds and started overdosing with them. He reports having told his of what he did afterwards "to show her that my blood is on her hands" and is under the impression that she called EMS for him. Patient is also stressed at potentially having nowhere to live since his plans to kick him out of the home. Patient reports having fair mood in general but that the recent interpersonal conflict with his has caused his mood to be angry and sad. He reports trouble sleeping and said he had a sleep study completed recently. He endorses fair appetite. At this time patient denies any homicidal ideations, intent or plan. Patient denies any visual hallucinations and denies any paranoia. Patients denies using any substances at this time. UDS positive for TCA. Patient was transferred to the [facility] on 11/27. Upon todays assessment, patient states that Monday, his and him got into a bad argument, and she was being "vicious" with her words, and he just started opening pill bottles, and pouring them into his hand, and swallowing them. His called 911, and he got brought to the hospital. He claims he did not do it to , he just wanted his "to shut up and leave him alone" He stated the past 2 weeks, he has been increasingly tearful and endorsing more depression. He claims that her mother meddles in their business, and that she is the reason for the problems him and his are having problems. States he generally uses a cpap machine at night, and would sleep better if he had his cpap machine. claims that his appetite is fair at this time. Denies any paranoia, endorses very intrusive thoughts. Denies auditory and visual hallucinations. PAST PSYCHIATRIC HISTORY: patient reports a long history of mental illness and says he used to be a patient at [facility], but since he began working there, Steffany PUGH has been prescribing his psychotropic medications. Waldemar lazar reports compliance with his psychotropic medication regimen outpatient. He is currently on Ritalin 20 mg 3 times a day, Requip 1.5 mg at bedtime, Ambien 10 mg at bedtime, Klonopin 0.5 mg daily when necessary, Seroquel 400 mg at bedtime, Cymbalta 60 mg twice a day, and gabapentin 500 mg 3 times a day. He reports 4 past hospitalizations. No previous suicide attempts. PMH:As per ER note ALLERGIES: as per EMR CHEMICAL DEPENDENCY HISTORY: as per HPI FAMILY PSYCHIATRIC/SUBSTANCE USE HISTORY: "nuts on both sides" SOCIAL HISTORY: Patient was born in [facility], and raised all around. Has a [employer] degree in [employer]. Patient reports having been for 17 years and his currently wants a divorce. He lives with his , son, and one daughter. 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 He has a history of legal problems 15 years ago where he was charged with home invasion. MENTAL STATUS EXAM: General Appearance: Patient appears to be stated age is cooperative. Patient appears to have fair hygiene and grooming wearing his own clothing, with good eye contact.. Behavior: Patient is calmly sitting in the chair without any agitated behavior. mildly tearful Speech: Patient's speech is fluent and nonpressured. Mood/Affect: Patient reports their mood is "sad", affect is congruent Suicidality/Homicidality: Patient denies having any homicidal ideation intent or plan. denies suicidal ideations Perceptions: Patient denies any visual hallucinations. denies auditory hallucinations Though content/process: There is no evidence of any delusional thought content and thought process is linear and goal-directed. rambles at times. Memory and concentration: AOX3, grossly intact for the purposes of this session. Judgment and insight: Poor STRENGTHS/WEAKNESSES: strength is that patient is resilient. Weakness is that patient has poor judgment and is impulsive INTELLECT: average IMPRESSIONS: Suicide attempt by overdose of medications Schizoaffective disorder nicotine dependance Marital problems PLAN: -Patient is admitted under voluntary status to MHU for stabilization of psychiatric symptoms and safety. Patient has signed adult voluntary form and medication consent and is placed in patient's chart. -Medications : resume back on his home dose of Cymbalta 60mg bid for mood/anxiety, start Geodon 20mg bid for mood stabilization/psychosis, d/c seroquel due to risk of increasing metabolic side effects/weight gain, visteral 50mg qhs for sleep/anxiety, melatonin 5mg qhs for sleep -ordered EKG -Klonopin and Zyprexa PRN for agitation/aggression -Patient was informed of the risks, benefits and side effects of the medication and patient verbally consented to taking the medications. -Internal Medicine consult to perform medical evaluation and physical -NRT - nicotine patch -SW on board for discharge planning. Encourage patient to participate in groups to work on coping skills. 11/29/23 11:50 11/29/23 12:28
[2023-11-29 12:34] LABS: Glucose,Whole Blood 279 mg/dL (70-110)
[2023-11-29] MEDS: ZIPRASIDONE 20 MG CAP PO SCH (12:54)
[2023-11-29 17:38] LABS: Glucose,Whole Blood 238 mg/dL (70-110)
[2023-11-29] MEDS: clonazePAM 0.5 MG TAB PO PRN (19:09)
--- NOTE | 2023-11-29 19:09 | P.MDCNMH ---
History of Present Illness H&P Date: 11/29/23 This is a 48-year-old male who was recently seen and evaluated on the medical floor for suicidal ideation with attempted overdose with medications including insulins. Patient having extreme social issues with family and discussing possible divorce. Patient with increased stressors reported he did not want to live anymore. Patient was petitioned and signed into 3 W. psychiatric unit for further psychiatric care and evaluation. Patient reports to feeling and slight withdrawal as he had not been receiving his scheduled psychiatric medications. Patient's blood sugars are extremely resistant to insulin he reports an hemoglobin A1c is 14.4. Patient has been working with his neuropsychology director as well as primary care provider on obtaining Ozempic. Will continue with sliding scale for now as well as long-acting and will adjust accordingly. Patient denies any chest pain or shortness of breath. Patient reports is tolerating diet with no reported nausea or vomiting. Patient is currently attending group therapy and awaiting to be evaluated by psychiatry. Patient was started on metoprolol although reports to feeling abnormal and has side effects and does not want to take this medication. Will hold metoprolol for now. REVIEW OF SYSTEMS: CONSTITUTIONAL: No fever, no malaise, no fatigue. HEENT: No recent visual problems or hearing problems. Denied any sore throat. CARDIOVASCULAR: No chest pain, orthopnea, PND, no palpitations, no syncope. PULMONARY: No shortness of breath, no cough, no hemoptysis. GASTROINTESTINAL: No diarrhea, no nausea, no vomiting, no abdominal pain. NEUROLOGICAL: No headaches, no weakness, no numbness. HEMATOLOGICAL: Denies any bleeding or petechiae. GENITOURINARY: Denies any burning micturition, frequency, or urgency. MUSCULOSKELETAL/RHEUMATOLOGICAL: Denies any joint pain, swelling, or any muscle pain. ENDOCRINE: Denies any polyuria or polydipsia. The rest of the 14-point review of systems is negative. PHYSICAL EXAMINATION: GENERAL: The patient is alert and oriented x3, appears depressed, slightly anxious. Well developed, well nourished. Obese HEENT: Pupils are round and equally reacting to light. EOMI. No scleral icterus. No conjunctival pallor. Normocephalic, atraumatic. No pharyngeal erythema. No thyromegaly. CARDIOVASCULAR: S1 and S2 present. No murmurs, rubs, or gallops. PULMONARY: Chest is clear to auscultation, no wheezing or crackles. ABDOMEN: Soft, obese, about suicidal ideation with intentional overdose nont elan, nondistended, normoactive bowel sounds. No palpable organomegaly. MUSCULOSKELETAL: No joint swelling or deformity. EXTREMITIES: No cyanosis, clubbing, or pedal edema. NEUROLOGICAL: Gross neurological examination did not reveal any focal deficits. SKIN: No rashes. Assessment: Suicidal attempt with intentional overdose of medications History of anxiety/depression/PTSD Schizoaffective disorder THC use Obesity Diabetes mellitus, type II, insulin resistant per patient, hemoglobin A1c 14.4 Former meth use Hyperlipidemia Plan: Patient was seen and evaluated on 3 W. psychiatric unit currently in a group therapy session reports to doing well. Patient reports not sleeping the greatest and appetite is okay. Blood sugars have been on the elevated side in the 200s and will continue with sliding scale and have resumed long-acting and will add long-acting twice daily. Patient noted to have an elevated heart rate and was started on metoprolol on the medical unit although patient reports is having side effects and does not want to take this. Will hold metoprolol for now. Patient will need outpatient follow-up with his endocrine as well as primary care provider Patient encouraged to attend group therapy sessions and compliance with medications Patient will need statin therapy his cholesterol panel was abnormal and will initiate and monitor. Please contact us with any questions or concerns Thank you kindly for this consult The impression and plan of care has been dictated by Jerri Paula, Nurse Practitioner as directed. Dr. Lane MD I have performed a history and examination and MDM of this patient, discussed the same with the dictator, and agree with the dictator's assessment and plan as written ,documented as a scribe. Based on total visit time, I have performed more than 50% of the visit. Past Medical History Past Medical History: Diabetes Mellitus Additional Past Medical History / Comment(s): chronic back pain. PUNTURED RIGHT LUNG POST ACCIDENT (CHEST-TUBE) bilateral neuropathy History of Any Multi-Drug Resistant Organisms: None Reported Past Surgical History: Appendectomy Past Anesthesia/Blood Transfusion Reactions: Previous Problems w/ Anesthesia Additional Past Anesthesia/Blood Transfusion Reaction / Comment(s): AGITATION, PATIENT STATES HE "FREAKED OUT", TRIED TO PULL OUT TUBES. Past Psychological History: Anxiety, Bipolar, Depression, PTSD, Schizoaffective Disorder Additional Psychological History / Comment(s): SEVERE ANXIETY DISORDER. Smoking Status: Vaper Past Alcohol Use History: None Reported, Occasional Past Drug Use History: Marijuana, Methamphetamine Additional Drug Use History / Comment(s): Hx of meth abuse clean for 25 years. - Past Family History Mother Family Medical History: Diabetes Mellitus Medications and Allergies Home Medications Medication Instructions Recorded Confirmed Type Gabapentin 800 mg PO 5XD 05/06/21 11/25/23 History Sildenafil Citrate 100 mg PO DAILY PRN 05/06/21 11/25/23 History DULoxetine HCL [Cymbalta] 60 mg PO BID 11/25/23 11/25/23 History HYDROcodone/APAP 10-325MG [[place] 1 tab PO Q6HR PRN 11/25/23 11/25/23 History 10-325] Insulin Glargine,Hum.rec.anlog 48 units SQ DAILY 11/25/23 11/25/23 History [Toujeo Max Solostar] Methylphenidate HCl [Ritalin] 20 mg PO TID 11/25/23 11/25/23 History Omeprazole [PriLOSEC] 40 mg PO DAILY 11/25/23 11/25/23 History Oxybutynin Chloride [oxyBUTYnin 15 mg PO DAILY 11/25/23 11/25/23 History chloride ER] Pioglitazone [Actos] 30 mg PO DAILY 11/25/23 11/25/23 History QUEtiapine FUMARATE [SEROquel] 400 mg PO HS 11/25/23 11/25/23 History Zolpidem [Ambien] 10 mg PO HS 11/25/23 11/25/23 History clonazePAM [KlonoPIN] 0.5 mg PO DAILY PRN 11/25/23 11/25/23 History rOPINIRole HCL [Requip] 1.5 mg PO HS 11/25/23 11/25/23 History INSULIN ASPART (NovoLOG) [NovoLOG 0 unit SQ ACHS each 11/28/23 Rx (formulary)] Metoprolol Tartrate [Lopressor] 50 mg PO BID tab 11/28/23 Rx Nicotine 21Mg/24Hr Patch [Habitrol] 1 patch TRANSDERM DAILY patch 11/28/23 Rx Allergies Allergy/AdvReac Type Severity Reaction Status Date / Time fluoxetine AdvReac Suicidal Verified 11/29/23 01:00 Physical Exam Vitals: Vital Signs Temp Pulse Resp BP Pulse Ox 11/29/23 08:13 109 H 107/58 11/29/23 06:52 97.9 F 104 H 16 122/65 97 11/28/23 23:57 97.6 F 88 18 162/76 97 Intake and Output 11/29/23 11/29/23 11/29/23 06:59 14:59 22:59 Other: Weight 105.8 kg Cranial Nerve Examination - Cranial Nerves Cranial Nerve I- Olfactory: Intact Cranial Nerve II- Optic: Intact Cranial Nerve III- Oculomotor: Intact Cranial Nerve IV- Trochlear: Intact Cranial Nerve V- Trigeminal: Intact Cranial Nerve - Abducens: Intact Cranial Nerve VII- Facial: Intact Cranial Nerve VIII- Auditory: Intact Cranial Nerve IX- Glossopharyngeal: Intact Cranial Nerve X- Vagus: Intact Cranial Nerve XI- Accessory: Intact Cranial Nerve XII- Hypoglossal: Intact Results Labs: Abnormal Lab Results - Last 24 Hours (Table) 11/29/23 11/29/23 11/29/23 Range/Units 06:00 07:42 12:33 POC Glucose (mg/dL) 255 H 279 H (70-110) mg/dL Triglycerides 206.00 H (0.00-149.00) mg/dL Cholesterol 244.00 H (0.00-200.00) mg/dL LDL Cholesterol, Calc 158.4 H (0.0-131.0) mg/dL VLDL Cholesterol, Calc 41.20 H (5.00-40.00) mg/dL 11/29/23 Range/Units 17:36 POC Glucose (mg/dL) 238 H (70-110) mg/dL Triglycerides (0.00-149.00) mg/dL Cholesterol (0.00-200.00) mg/dL LDL Cholesterol, Calc (0.0-131.0) mg/dL VLDL Cholesterol, Calc (5.00-40.00) mg/dL Assessment and Plan Time with Patient: Less than 30
[2023-11-29 20:02] LABS: Glucose,Whole Blood 219 mg/dL (70-110)
[2023-11-29] MEDS: DULoxetine HCL 60 MG CAPSULE.DR PO SCH (20:41)
[2023-11-29] MEDS: MELATONIN 5 MG TABLET PO SCH (20:41)
[2023-11-29] MEDS: hydrOXYzine pamoate 25 MG CAP PO SCH (20:41)
[2023-11-30] MEDS: IBUPROFEN 600 MG TAB PO PRN (01:45)
[2023-11-30] MEDS: ACETAMINOPHEN TAB 325 MG TAB PO PRN (04:24)
[2023-11-30 07:53] LABS: Glucose,Whole Blood 245 mg/dL (70-110)
[2023-11-30] MEDS: ATORVASTATIN 40 MG TAB PO SCH (08:45)
--- NOTE | 2023-11-30 11:40 | P.PN ---
Progress Note - Text Progress Note Date: 11/30/23 Interval History: Patient was seen in group, and was directable and agreeable to speak with expert medical writer in the office. Patient states he is feeling a bit more hopeful for the future after speaking with his family yesterday. Patient claims his intrusive thoughts are improving a bit. Patient claims that he was having problems initiating and staying asleep last night, due to not having a cpap. His is bringing it today, so he will have it tonight. Spoke with patient about a discharge plan, and patient stated he will be going to a homeless senior living to begin with, he does not have family nearby, so unless he reconciles with his , he will buy a camper and live in that. At this time patient denies any suicidal or homicidal ideations, intent or plan. Patient denies any auditory, visual hallucinations and denies any paranoia or delusions. Patient denies any side effects from the medications and has been compliant with meds. Patient is going to groups and attempting to participate and interact with other peers. MENTAL STATUS EXAM: General Appearance: Patient appears to be stated age is cooperative. Patient appears to have fair hygiene and grooming wearing his own clothing, with good eye contact.. Behavior: Patient is calmly sitting in the chair without any agitated behavior. More cooperative today. Speech: Patient's speech is fluent and nonpressured. Mood/Affect: Patient reports their mood is "improving", affect is congruent mildly improving Suicidality/Homicidality: Patient denies having any homicidal ideation intent or plan. denies suicidal ideations Perceptions: Patient denies any visual hallucinations. denies auditory hallucinations Though content/process: There is no evidence of any delusional thought content and thought process is linear and goal-directed. rambles at times. Memory and concentration: AOX3, grossly intact for the purposes of this session. Judgment and insight: improving IMPRESSIONS: Suicide attempt by overdose of medications Schizoaffective disorder nicotine dependance Marital problems PLAN: -Patient is admitted under voluntary status to MHU for stabilization of psychiatric symptoms and safety. Patient has signed adult voluntary form and medication consent and is placed in patient's chart. -Medications : Cymbalta 60mg bid for mood/anxiety, increase Geodon 40mg bid for mood stabilization/psychosis, visteral 50mg qhs for sleep/anxiety, increase melatonin 10 mg qhs for sleep -[employer] reviewed EKG -Klonopin and Zyprexa PRN for agitation/aggression -NRT - nicotine patch -SW on board for discharge planning. Encourage patient to participate in groups to work on coping skills. Likely discharge tomorrow, if patient continues to improve. Patient will be given senior living information as he would like to stay in the area near his kids and his job.
[2023-11-30 12:47] LABS: Glucose,Whole Blood 330 mg/dL (70-110)
[2023-11-30 17:33] LABS: Glucose,Whole Blood 217 mg/dL (70-110)
[2023-11-30] MEDS: PANTOPRAZOLE 40 MG TABLET PO SCH (17:36)
[2023-11-30 20:12] LABS: Glucose,Whole Blood 284 mg/dL (70-110)
[2023-11-30] MEDS: MELATONIN 5 MG TABLET PO SCH (20:18)
[2023-11-30] MEDS: ZIPRASIDONE 40 MG CAP PO SCH (20:19)
[2023-11-30] MEDS: MAG HYDROX/AL HYDROX/SIMETH 355 ML BOTTLE PO PRN (21:54)
[2023-12-01 05:54] VITALS: BP 163/77; PULSE 107; RESP 18; TEMP 98
[2023-12-01 07:41] LABS: Glucose,Whole Blood 292 mg/dL (70-110)
--- NOTE | 2023-12-01 10:14 | P.DS ---
Providers Date of admission: 11/28/23 21:21 Expected date of discharge: 12/01/23 Attending physician: Marino Lawrence MD Consults: 11/28/23 18:52 Consult Physician Routine Consulting Provider: Jacky Martin Consult Reason/Comments: history and physical/medical management Do you want consulting provider notified?: Yes Primary care physician: Marino Lawrence MD - Discharge Diagnosis(es) (1) Suicide attempt by multiple drug overdose Current Visit: No Status: Acute Priority: High (2) Schizoaffective disorder Current Visit: Yes Status: Acute Priority: Medium (3) Nicotine dependence Current Visit: Yes Status: Acute Priority: Low (4) Marital problems Current Visit: Yes Status: Acute Priority: High Hospital Course: Admission HPI: Admission note was completed by life insurance underwriter. "Patient presented to the hospital The patient presented to the hospital on 11/25/2023 after overdose with numerous medications. He was admitted onto ICU and subsequently the medical floor for further stabilization. as per consult note by Dr. Smith, "Patient was seen bedside this afternoon, with sitter present nearby. He reports having attempted suicide with overdose on Ambien, Ritalin, Seroquel, and Cymbalta. He states that the trigger was his wanting a divorce. He admits that this was an intentional overdose attempt to end his life. He says "I don't want to live anymore ". He is currently "paste that it did not work". Patient continues to express suicidal ideation at this moment but says "I'm not going to tell you what I want to do ". Patient is intermittently irritable during the interview but reports that he has a history of schizophrenia and has also been experiencing command auditory hallucinations to harm himself ever since he realized his said she would like to divorce him. He states that he was at home in a room by himself (his was home) when he grabbed various bottles of meds and started overdosing with them. He reports having told his of what he did afterwards "to show her that my blood is on her hands" and is under the impression that she called EMS for him. Patient is also stressed at potentially having nowhere to live since his plans to kick him out of the home. Patient reports having fair mood in general but that the recent interpersonal conflict with his has caused his mood to be angry and sad. He reports trouble sleeping and said he had a sleep study completed recently. He endorses fair appetite. At this time patient denies any homicidal ideations, intent or plan. Patient denies any visual hallucinations and denies any paranoia. Patients denies using any substances at this time. UDS positive for TCA. Patient was transferred to the U on 11/27. Upon todays assessment, patient states that Monday, his and him got into a bad argument, and she was being "vicious" with her words, and he just started opening pill bottles, and pouring them into his hand, and swallowing them. His called 911, and he got brought to the hospital. He claims he did not do it to , he just wanted his "to shut up and leave him alone" He stated the past 2 weeks, he has been increasingly tearful and endorsing more depression. He claims that her mother meddles in their business, and that she is the reason for the problems him and his are having problems. States he generally uses a cpap machine at night, and would sleep better if he had his cpap machine. claims that his appetite is fair at this time. Denies any paranoia, endorses very intrusive thoughts. Denies auditory and visual hallucinations." Hospital course: Upon admission to the unit patient was directable and agreeable to commence treatment and signed adult voluntary form. Patient got along well with other patients on the unit and followed unit protocol. Patient was compliant with the medications and denied any side effects throughout hospital course. Patient was started on Cymbalta and increased to dose of 60 mg twice daily for mood/anxiety, Geodon was started and increased to dose of 40 mg twice daily for mood stabilization/psychosis, Seroquel was discontinued. Vistaril started and increased to dose of 50 mg nightly for sleep/anxiety, melatonin increased to dose of 10 mg nightly for sleep. Ambien was discontinued. Patient spoke of his stressors and engaged in therapy both group and individual. Patient was also seen by medical team for history and physical exam. Throughout the course of the hospitalization patient gradually improved with regards to mood, anxiety, psychosis/voices, suicidal thoughts, sleep and became more future oriented with improved insight and judgment. On the day of discharge patient denied any suicidal or homicidal ideations intent or plan denied any auditory or visual hallucinations. Patient endorsed wanting to live for his health, kids and family. The patient denied any access to guns or weapons. Patient denied any paranoia and did not endorse any delusions. Patient does not have a significant history of substance abuse and was counseled on abstaining from all substances including alcohol and marijuana. Patient was also counseled on the medications and need for regular compliance and was encouraged to follow-up with their outpatient appointment for mental health and also for primary care. Patient will either stay at low cost motel/hotel versus halfway. Mental status exam: General Appearance: Patient appears to be overweight, stated age is alert, pleasant, and cooperative. Patient is in no acute distress and has improved hygiene and grooming Behavior: Patient is calmly seated without any agitated behavior. Speech: Patient's speech is fluent and nonpressured. Mood/Affect: Patient reports their mood is "better", affect is congruent and euthymic. Suicidality/Homicidality: Patient denies having any suicidal or homicidal ideation intent or plan. Perceptions: Patient denies any auditory or visual hallucinations. Though content/process: There is no evidence of any delusional thought content and thought process is linear and goal-directed. Memory and concentration: AOX3, grossly intact for the purposes of this session. Can spell "WORLD" backwards correctly. Judgment and insight: improved with guarded prognosis Impression: Suicide attempt by overdose of medications Schizoaffective disorder nicotine dependance Marital problems Plan: -Continue with discharge today as patient has improved and stabilized psychiatrically and is not currently an imminent threat to himself and/or others. -Continue medications: Cymbalta 60 mg twice daily for mood/anxiety, Geodon 40 mg twice daily for mood stabilization/psychosis, Vistaril 50 mg nightly for sleep/anxiety, melatonin 10 milligrams nightly for sleep. -Patient was counseled on the need for medication compliance and appropriate follow-up at mental health and also primary care for medical issues. Patient verbalized understanding and agreed. -Social work to help coordinate patient's discharge today, will give halfway referral as well if patient needs it. Social work also to arrange for patients follow up appointments with [facility] for psychiatric care along with follow up with primary care provider. -Patient counseled on abstaining from recreational drugs and marijuana and alcohol. Was informed/educated on the adverse effects on their physical and mental health. Patient verbally agreed and understood. -Patient was instructed to return to the hospital or seek immediate medical care if their psychiatric or medical symptoms do worsen or reoccur. Allergies Allergy/AdvReac Type Severity Reaction Status Date / Time fluoxetine AdvReac Suicidal Verified 11/29/23 01:00 Laboratory Results POC Glucose (mg/dL) 292 mg/dL (70-110) H 12/01/23 07:38 POC Glu Waste Recycler ID [id number] 12/01/23 07:38 Triglycerides 206.00 mg/dL (0.00-149.00) H 11/29/23 06:00 Cholesterol 244.00 mg/dL (0.00-200.00) H 11/29/23 06:00 LDL Cholesterol, Calc 158.4 mg/dL (0.0-131.0) H 11/29/23 06:00 VLDL Cholesterol, Calc 41.20 mg/dL (5.00-40.00) H 11/29/23 06:00 HDL Cholesterol 44.40 mg/dL (40.00-60.00) 11/29/23 06:00 Cholesterol/HDL Ratio 5.50 Ratio 11/29/23 06:00 TSH 0.760 UIU/ML (0.350-5.500) 11/29/23 06:00 TSH Cancelled 11/29/23 06:00 Vital Signs Temp 98.0 F 12/01/23 05:49 Pulse 107 H 12/01/23 05:49 Resp 18 12/01/23 05:49 BP 163/77 12/01/23 05:49 Pulse Ox 97 11/29/23 06:52 FiO2 Patient Condition at Discharge: Stable Plan - Discharge Summary Discharge Rx Participant: No New Discharge Prescriptions: New Atorvastatin [Lipitor] 40 mg PO DAILY 30 Days #30 tab Melatonin 10 mg PO HS 30 Days #60 tab Ibuprofen [Motrin] 600 mg PO Q6HR PRN tab PRN Reason: Moderate Pain (Scale 4 To 6) hydrOXYzine pamoate [Vistaril] 50 mg PO HS 30 Days #60 cap DULoxetine HCL [Cymbalta] 60 mg PO BID 30 Days #60 cap Ziprasidone [Geodon] 40 mg PO BID 30 Days #60 cap Nicotine 21Mg/24Hr Patch [Habitrol] 1 patch TRANSDERM DAILY 14 Days #14 patch Gabapentin [Neurontin] 500 mg PO TID cap Continue Oxybutynin Chloride [oxyBUTYnin chloride ER] 15 mg PO DAILY Insulin Glargine,Hum.rec.anlog [Toujeo Max Solostar] 48 units SQ DAILY clonazePAM [KlonoPIN] 0.5 mg PO DAILY PRN PRN Reason: Anxiety Pioglitazone [Actos] 30 mg PO DAILY INSULIN ASPART (NovoLOG) [NovoLOG (formulary)] 0 unit SQ ACHS each rOPINIRole HCL [Requip] 1.5 mg PO HS 30 Days #45 tab Changed Omeprazole [PriLOSEC] 40 mg PO AC-SUPPER 30 Days #30 cap Discontinued Zolpidem [Ambien] 10 mg PO HS DULoxetine HCL [Cymbalta] 60 mg PO BID Nicotine 21Mg/24Hr Patch [Habitrol] 1 patch TRANSDERM DAILY patch Metoprolol Tartrate [Lopressor] 50 mg PO BID tab Sildenafil Citrate 100 mg PO DAILY PRN PRN Reason: E.D. Gabapentin 800 mg PO 5XD HYDROcodone/APAP 10-325MG [[place] 10-325] 1 tab PO Q6HR PRN PRN Reason: Pain QUEtiapine FUMARATE [SEROquel] 400 mg PO HS Methylphenidate HCl [Ritalin] 20 mg PO TID Discharge Medication List Insulin Glargine,Hum.rec.anlog [Toujeo Max Solostar] 48 units SQ DAILY 11/25/23 [History] Oxybutynin Chloride [oxyBUTYnin chloride ER] 15 mg PO DAILY 11/25/23 [History] Pioglitazone [Actos] 30 mg PO DAILY 11/25/23 [History] clonazePAM [KlonoPIN] 0.5 mg PO DAILY PRN 11/25/23 [History] INSULIN ASPART (NovoLOG) [NovoLOG (formulary)] 0 unit SQ ACHS each 11/28/23 [Rx] Atorvastatin [Lipitor] 40 mg PO DAILY 30 Days #30 tab 12/01/23 [Rx] DULoxetine HCL [Cymbalta] 60 mg PO BID 30 Days #60 cap 12/01/23 [Rx] Gabapentin [Neurontin] 500 mg PO TID cap 12/01/23 [Rx] Ibuprofen [Motrin] 600 mg PO Q6HR PRN tab 12/01/23 [Rx] Melatonin 10 mg PO HS 30 Days #60 tab 12/01/23 [Rx] Nicotine 21Mg/24Hr Patch [Habitrol] 1 patch TRANSDERM DAILY 14 Days #14 patch 12/01/23 [Rx] Omeprazole [PriLOSEC] 40 mg PO AC-SUPPER 30 Days #30 cap 12/01/23 [Rx] Ziprasidone [Geodon] 40 mg PO BID 30 Days #60 cap 12/01/23 [Rx] hydrOXYzine pamoate [Vistaril] 50 mg PO HS 30 Days #60 cap 12/01/23 [Rx] rOPINIRole HCL [Requip] 1.5 mg PO HS 30 Days #45 tab 12/01/23 [Rx] Follow up Appointment(s)/Referral(s): [facility] - 12/04/23 11:00 am (12/03 @ 10:30 for paperwork Joyce Resendiz 12/03 @ 11:00) [facility] [NON-STAFF] - 1 Week Patient Instructions/Handouts: How to Stop Smoking (DC), Schizoaffective Disorder (DC) Activity/Diet/Wound Care/Special Instructions: Avoid the use of street drugs and alcohol. Take all medications as prescribed. When you are in need of refills on your medications, please contact your medical provider and/or outpatient psychiatrist/provider to have this done. Please go to your scheduled outpatient appointment for aftercare treatment. If symptoms return or become worse, call the crisis line at and/or go to the nearest emergency room for evaluation. National Suicide Hotline 490.
== END 2023-12-01 12:12 | disposition home or self-care (01) | DRG 885 ==
LOC: 3MHU 21:21
PROVIDERS: ADMIT Psychiatry & Neurology Psychiatry; ATTEND Psychiatry & Neurology Psychiatry
DX: F25.9 Schizoaffective disorder, unspecified (principal); Z59.01 Sheltered homelessness; E11.9 Type 2 diabetes mellitus without complications; E66.9 Obesity, unspecified; Z68.37 Body mass index [BMI] 37.0-37.9, adult; F15.11 Other stimulant abuse, in remission; F12.90 Cannabis use, unspecified, uncomplicated; F17.290 Nicotine dependence, other tobacco product, uncomplicated; F41.9 Anxiety disorder, unspecified; E78.5 Hyperlipidemia, unspecified; T43.63 Poisoning by, adverse effect of and underdosing of methylphenidate; T43.592D Poisoning by other antipsychotics and neuroleptics, intentional self-harm, subsequent encounter; T43.212D Poisoning by selective serotonin and norepinephrine reuptake inhibitors, intentional self-harm, subsequent encounter; Z71.6 Tobacco abuse counseling; Z79.4 Long term (current) use of insulin; Z79.84 Long term (current) use of oral hypoglycemic drugs; Z79.899 Other long term (current) drug therapy; Z63.0 Problems in relationship with spouse or partner; Z71.51 Drug abuse counseling and surveillance of drug abuser
CPT/HCPCS: 80061; 84443; 93005

== ENCOUNTER → 2024-04-04 | Outpatient (CLI) | payer OTHER | END | disposition home or self-care (01) | LOC: LABPRL 12:34 | PROVIDERS: ATTEND Internal Medicine | DX: E11.65 Type 2 diabetes mellitus with hyperglycemia (principal) | CPT/HCPCS: 80061; 82043; 82565; 82570; 83036 ==

== ENCOUNTER 2025-02-27 18:55 | Observation (INO) | payer OTHER ==
[2025-02-27 19:27] LABS: Glucose,Whole Blood 166 mg/dL (70-110)
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
[2025-02-27 20:26] LABS: Basophils # (A) 0.04 10*3/uL (0.00-0.10); Basophils % (A) 0.5 %; Eosinophils # (A) 0.10 10*3/uL (0.04-0.35); Eosinophils % (A) 1.3 %; HCT 43.7 % (39.6-50.0); HGB 14.3 g/dL (13.0-17.0); Lymphocytes # (A) 2.49 10*3/uL (0.90-5.00); Lymphocytes % (A) 33.1 %; MCH 28.2 pg (27.0-32.0); MCHC 32.7 g/dL (32.0-37.0); MCV 86.2 fL (80.0-97.0); Monocytes # (A) 0.60 10*3/uL (0.20-1.00); Monocytes % (A) 8.0 %; Neutrophils # (A) 4.23 10*3/uL (1.80-7.70); Neutrophils % (A) 56.3 %; Platelet Count 338 10*3/uL (140-440); RBC 5.07 10*6/uL (4.40-5.60); RDW 16.4 % (11.5-14.5); WBC 7.52 10*3/uL (4.50-10.00)
[2025-02-27 20:31] LABS: INR 0.9 (<1.2); Partial Thromboplastin Time 25.6 sec (22.0-30.0); Prothrombin Time 10.5 sec (10.0-12.5)
[2025-02-27 20:36] LABS: Bilirubin,Urine Negative (Negative); Blood,Urine Negative (Negative); Color,Urine Colorless; Glucose,Urine (UA) 3+ (Negative); Ketones,Urine Negative (Negative); Leukocyte Esterase,Urine Negative (Negative); Nitrite,Urine Negative (Negative); PH, Urine 6.5 (5.0-8.0); Protein,Urine Negative (Negative); Specific Gravity,Urine 1.014 (1.001-1.035); Urobilinogen,Urine <2.0 mg/dL (<2.0)
[2025-02-27 20:39] LABS: ALT 17 U/L (4-49); AST 21 U/L (17-59); African American GFR (CKD) >90 (>60 ml/min/1.73 sqM); Albumin 4.1 g/dL (3.5-5.0); Alkaline Phosphatase 81 U/L (38-126); Anion Gap 9 mmol/L; Blood Urea Nitrogen 10 mg/dL (9-20); Calcium 9.7 mg/dL (8.4-10.2); Carbon Dioxide 27 mmol/L (22-30); Chloride 103 mmol/L (98-107); Glucose 189 mg/dL (74-99); Magnesium 2.1 mg/dL (1.6-2.3); Non-African American GFR(CKD) >90 (>60 ml/min/1.73 sqM); Potassium 4.4 mmol/L (3.5-5.1); Sodium 139 mmol/L (137-145); Total Protein 6.4 g/dL (6.3-8.2)
--- NOTE | 2025-02-27 20:55 | CT ---
EXAMINATION TYPE: CT brain wo con CT DLP: 1156.4 mGycm, Automated exposure control for dose reduction was used. DATE OF EXAM: 02/27/2025 8:43 PM COMPARISON: None. CLINICAL INDICATION:Male, 49 years old with history of ams, AMS TECHNIQUE: Brain: Multiple axial CT images of the brain were obtained without IV contrast. . Coronal and sagitta l reformats reviewed. FINDINGS: Brain: Extra-axial spaces: No abnormal extra-axial fluid collections. Ventricular system: Within normal limits Cerebral parenchyma: No acute intraparenchymal hemorrhage or mass effect. The king-white junction is well differentiated. Cerebellum: Unremarkable. Mass effect: No evidence of midline shift. Intracranial vasculature: unremarkable Soft tissues: Normal. Calvarium/osseous structures: No depressed skull fracture. Paranasal sinuses and mastoid air cells: Clear Visualized orbits: Orbital contents are intact. IMPRESSION: No acute intracranial process. [facility], , 02/27/2025 8:53 PM
[2025-02-27 21:28] LABS: Acetaminophen <10.0 ug/mL; Salicylate <1.0 mg/dL
[2025-02-27] MEDS ORDERED: NALOXONE 0.4 MG/ML 1 ML VIAL IV PRN (23:04)
[2025-02-27 23:44] LABS: Barbiturate Screen,Urine Not Detected (NotDetected); Benzodiazepines Screen,Urine Detected (NotDetected); Opiate Screen,Urine Not Detected (NotDetected); Oxycodone Screen, Urine Not Detected (NotDetected); Phencyclidine Screen,Urine Not Detected (NotDetected); Tricyclic Antidepressant,Urine Not Detected (NotDetected); Urn Cannabinoid Scrn Not Detected (NotDetected)
[2025-02-28] MEDS: LABETALOL 5 MG/ML VIAL MDV IVP STA (01:41)
[2025-02-28 05:58] LABS: Basophils # (A) 0.05 10*3/uL (0.00-0.10); Basophils % (A) 0.7 %; Eosinophils # (A) 0.16 10*3/uL (0.04-0.35); Eosinophils % (A) 2.1 %; HCT 42.3 % (39.6-50.0); HGB 13.4 g/dL (13.0-17.0); Lymphocytes # (A) 2.50 10*3/uL (0.90-5.00); Lymphocytes % (A) 32.6 %; MCH 28.2 pg (27.0-32.0); MCHC 31.7 g/dL (32.0-37.0); MCV 88.9 fL (80.0-97.0); Monocytes # (A) 0.65 10*3/uL (0.20-1.00); Monocytes % (A) 8.5 %; Neutrophils # (A) 4.25 10*3/uL (1.80-7.70); Neutrophils % (A) 55.4 %; Platelet Count 323 10*3/uL (140-440); RBC 4.76 10*6/uL (4.40-5.60); RDW 16.6 % (11.5-14.5); WBC 7.66 10*3/uL (4.50-10.00)
[2025-02-28 06:09] LABS: African American GFR (CKD) >90 (>60 ml/min/1.73 sqM); Anion Gap 10 mmol/L; Blood Urea Nitrogen 9 mg/dL (9-20); Calcium 9.6 mg/dL (8.4-10.2); Carbon Dioxide 27 mmol/L (22-30); Chloride 100 mmol/L (98-107); Glucose 239 mg/dL (74-99); Non-African American GFR(CKD) >90 (>60 ml/min/1.73 sqM); Potassium 4.2 mmol/L (3.5-5.1); Sodium 137 mmol/L (137-145)
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
[2025-02-28] MEDS ORDERED: LORazepam 1 MG TAB PO PRN (13:22)
[2025-02-28] MEDS ORDERED: DEXTROSE 50% SYRINGE 50 ML IVP PRN ×2 (13:39)
--- NOTE | 2025-02-28 14:08 | P.CNNES ---
<BarnardFloydjoejoe - Last Filed: 02/28/25 15:39> History of Present Illness Consult date: 02/28/25 Requesting physician: Steffany Barton Reason for Consult: Acute encephalopathy History of Present Illness: Patient is a 49-year-old male with diabetes mellitus who presented to the ED with altered mental status. Patient was accompanied by police. Reportedly the patient was acting abnormally for the past couple of weeks and that accelerated yesterday when the patient got to work. The patient's boss drove him to [facility]. Patient stated that they told him that he was okay to leave and gave him a bus. To get home. On the bus the patient saw himself and was having balance issues. They petitioned the patient. Patient was apparently also noted to have significant difficulty in remembering the events of the day. He does mention going through a divorce and has increased stress levels recently. Patient reports not taking antipsychotic home meds for some time. Patient seen today under [facility] consultation for acute encephalopathy. Vital signs are within normal limits Glucose 239 UA shows 3+ glucose Urine tox is positive for benzodiazepines Brain CT shows no acute intracranial process Past Medical History Past Medical History: Diabetes Mellitus Additional Past Medical History / Comment(s): chronic back pain. PUNTURED RIGHT LUNG POST ACCIDENT (CHEST-TUBE) bilateral neuropathy History of Any Multi-Drug Resistant Organisms: None Reported Past Surgical History: Appendectomy Past Anesthesia/Blood Transfusion Reactions: Previous Problems w/ Anesthesia Additional Past Anesthesia/Blood Transfusion Reaction / Comment(s): AGITATION, PATIENT STATES HE "FREAKED OUT", TRIED TO PULL OUT TUBES. Past Psychological History: Anxiety, Bipolar, Depression, PTSD, Schizoaffective Disorder Smoking Status: Vaper Past Alcohol Use History: None Reported, Occasional Past Drug Use History: Marijuana, Methamphetamine - Past Family History Mother Family Medical History: Diabetes Mellitus Medications and Allergies Home Medications Medication Instructions Recorded Confirmed Type DULoxetine HCL [Cymbalta] 60 mg PO BID 30 Days #60 cap 12/01/23 02/28/25 Rx Ziprasidone [Geodon] 40 mg PO BID 30 Days #60 cap 12/01/23 02/28/25 Rx Gabapentin [Neurontin] 800 mg PO TID 02/28/25 02/28/25 History HYDROcodone/APAP 10-325MG [[place] 1 tab PO Q8H PRN 02/28/25 02/28/25 History 10-325] INSULIN LISPRO (HumaLOG) [HumaLOG] 8 - 12 units SQ ACHS 02/28/25 02/28/25 History Insulin Degludec [Tresiba 40 - 50 units SQ DAILY 02/28/25 02/28/25 History Flextouch U-100 Pen] LORazepam [Ativan] 1 mg PO BID PRN 02/28/25 02/28/25 History Methylphenidate HCl 20 mg PO TID 02/28/25 02/28/25 History Omeprazole 40 mg PO DAILY 02/28/25 02/28/25 History Zolpidem [Ambien] 10 mg PO HS 02/28/25 02/28/25 History metFORMIN HCL ER [Glucophage XR] 500 mg PO BID 02/28/25 02/28/25 History Allergies Allergy/AdvReac Type Severity Reaction Status Date / Time fluoxetine AdvReac Suicidal Verified 02/28/25 09:02 Physical Examination - Vital Signs Vital Signs: Vital Signs Temp Pulse Resp BP Pulse Ox 02/28/25 06:37 94 14 142/96 97 02/28/25 04:55 69 19 130/87 97 02/28/25 03:50 77 15 143/73 96 02/28/25 02:55 74 12 142/64 98 02/28/25 02:15 153/83 02/28/25 02:05 135/64 02/28/25 02:00 82 13 147/86 97 02/28/25 01:55 148/84 02/28/25 01:45 85 20 126/86 96 02/28/25 01:00 91 19 179/111 95 02/28/25 00:00 98.4 F 104 H 19 164/86 98 02/27/25 23:00 98 17 152/81 98 02/27/25 22:00 94 16 183/105 94 L 02/27/25 21:00 90 14 175/102 95 02/27/25 20:00 94 13 174/98 98 02/27/25 18:57 98.2 F 104 H 18 144/85 99 Intake and Output 02/27/25 02/28/25 02/28/25 22:59 06:59 14:59 Other: Weight 96.615 kg General: no distress, lying in bed Neuro: Patient is awake alert and oriented x 3. Extraocular movements intact no nystagmus, face is symmetric, facial sensation normal. On muscle strength testing, there is 4/5 in all 4 extremities Deep tendon reflexes are symmetric 1 at the biceps, brachioradialis, knees and plantars indeterminate Sensory to touch is equal in b/l UE, numbness on right LE Cerebellar function showed no ataxia, dysmetria for [id number] testing, No dysdiadochokinesia Results - Laboratory Findings CBC and BMP: 02/28/25 05:10 02/28/25 05:10 Abnormal Lab Findings: Abnormal Labs 02/27/25 02/27/25 02/27/25 19:24 19:58 19:58 MCHC MPV Immature Gran # 0.06 H Glucose 189 H POC Glucose (mg/dL) 166 H Urine Glucose (UA) U Benzodiazepines Scrn 02/27/25 02/27/25 02/28/25 19:58 19:58 05:10 MCHC 31.7 L MPV 9.4 L Immature Gran # 0.05 H Glucose POC Glucose (mg/dL) Urine Glucose (UA) 3+ H U Benzodiazepines Scrn Detected H 02/28/25 05:10 MCHC MPV Immature Gran # Glucose 239 H POC Glucose (mg/dL) Urine Glucose (UA) U Benzodiazepines Scrn Assessment and Plan Assessment: Acute encephalopathy, currently at baseline Schizoaffective disorder, not compliant to home antipsychotic medications Diabetes mellitus Substance abuse Generalized anxiety disorder Tobacco use disorder Plan: Brain CT shows no acute intracranial process Patient given labetalol 20 mg IVP once in the ED for hypertension Obtain TSH, vitamin B12, folate, A1c, lipid panel Obtain EEG, ammonia Dictation was produced using [employer] dictation software. please excuse any grammatical, word or spelling errors. Ree Barnard MD PGY-2 IM <Dion Decker - Last Filed: 02/28/25 17:21> Physical Examination - Vital Signs Vital Signs: Vital Signs Temp Pulse Resp BP Pulse Ox 02/28/25 17:02 87 16 160/57 99 02/28/25 15:19 97.5 F L 86 18 173/96 97 02/28/25 10:58 89 16 155/91 100 02/28/25 06:37 94 14 142/96 97 02/28/25 04:55 69 19 130/87 97 02/28/25 03:50 77 15 143/73 96 02/28/25 02:55 74 12 142/64 98 02/28/25 02:15 153/83 02/28/25 02:05 135/64 02/28/25 02:00 82 13 147/86 97 02/28/25 01:55 148/84 02/28/25 01:45 85 20 126/86 96 02/28/25 01:00 91 19 179/111 95 02/28/25 00:00 98.4 F 104 H 19 164/86 98 02/27/25 23:00 98 17 152/81 98 02/27/25 22:00 94 16 183/105 94 L 02/27/25 21:00 90 14 175/102 95 02/27/25 20:00 94 13 174/98 98 02/27/25 18:57 98.2 F 104 H 18 144/85 99 Intake and Output 02/28/25 02/28/25 02/28/25 06:59 14:59 22:59 Output Total 100 Balance -100 Output: Urine 100 Other: # Voids 2 Results - Laboratory Findings CBC and BMP: 02/28/25 05:10 02/28/25 05:10 Abnormal Lab Findings: Abnormal Labs 02/27/25 02/27/25 02/27/25 19:24 19:58 19:58 MCHC MPV Immature Gran # 0.06 H Glucose 189 H POC Glucose (mg/dL) 166 H Hemoglobin A1c Folate Urine Glucose (UA) U Benzodiazepines Scrn 02/27/25 02/27/25 02/28/25 19:58 19:58 05:10 MCHC 31.7 L MPV 9.4 L Immature Gran # 0.05 H Glucose POC Glucose (mg/dL) Hemoglobin A1c Folate Urine Glucose (UA) 3+ H U Benzodiazepines Scrn Detected H 02/28/25 02/28/25 02/28/25 05:10 10:28 10:28 MCHC MPV Immature Gran # Glucose 239 H POC Glucose (mg/dL) Hemoglobin A1c 11.6 H Folate 3.90 L Urine Glucose (UA) U Benzodiazepines Scrn 02/28/25 17:00 MCHC MPV Immature Gran # Glucose POC Glucose (mg/dL) 244 H Hemoglobin A1c Folate Urine Glucose (UA) U Benzodiazepines Scrn Assessment and Plan Assessment: This is a 49-year-old gentleman with history of schizoaffective disorder was not been compliant with his antipsychotic medication for the last 1 and half month who recently has been having few falls as well as driving erratically. He stated that he stopped taking his psychiatric medications since he does not feel he needs them and he feels fine. He denies any suicidal or homicidal thoughts or plans. Denies any history of seizure. He is in the middle of divorce process. Also component of his confusion can be exacerbated due to his uncontrolled diabetes mellitus leading to metabolic encephalopathy Diabetes type 1 and the hemoglobin A1c is 11.6 Plan: TSH 1.470 Folate is 3.90 that is deficient so we will give the patient folic acid Ammonia level is less than 9 Preliminary EEG: Normal. CT head: negative for acute process. Psychiatry is consulted. Initially patient notified me that he does not have any suicidal thoughts but it seems that he notified psychiatry that he does. Recommend avoiding opiates/sedatives which can worsen his confusion. I will discharge recommend the patient to follow-up with a psychiatrist as an outpatient Patient was counseled on medication compliance. I personally examined the patient and reviewed labs and imaging. I agree with the residents assessment and plan. If Vitamin B12 is within normal limits then no additional neurological workup. Dr. Martinez resume neurology service tomorrow a.m. if needed then Dr. Talavera resume neurology service this Monday a.m. Time with Patient: Greater than 30
--- NOTE | 2025-02-28 14:41 | P.PN ---
Progress Note - Text Progress Note Date: 02/28/25 Preliminary EEG: Normal.
[2025-02-28] MEDS: INSULIN GLARGINE (LANTUS) 100 UNIT/ML SYR SQ SCH (15:22)
[2025-02-28] MEDS: GABAPENTIN 400 MG CAP PO SCH (15:23)
[2025-02-28] MEDS: METHYLPHENIDATE HCL 20 MG PO SCH (16:01)
--- NOTE | 2025-02-28 16:18 | EEG ---
ELECTROENCEPHALOGRAM REPORT CLINICAL HISTORY: This is a 49-year-old gentleman with altered mental status. The video EEG is obtained to evaluate for seizure epileptiform activity. RELEVANT MEDICATIONS: Cymbalta, Ambien, lorazepam, gabapentin. EEG TYPE: Routine 21 channel EEG is performed with video using the 10/20 electrode placement system. DESCRIPTION: Wakefulness and drowsiness are obtained. During awake state, the posterior-dominant rhythm consists of [id number] voltage, predominantly low voltage of 9.5 to 10 hertz activity that is well modulated, well sustained. There is no physiological stage 2 sleep architecture. There is no focal slowing. Interictal and ictal are none. ACTIVATION PROCEDURE: Photic stimulation did not evoke a posterior driving response. There is no abnormality during the photic stimulation. Hyperventilation is not performed. CLINICAL INTERPRETATION: This is a normal routine EEG during awake and drowsy state. There is no focal slowing, epileptiform discharge, or seizure on the EEG. A normal routine EEG does not rule out underlying epilepsy. Clinical correlation is recommended. MMJENNIFER / ADOREN: [id number] /
[2025-02-28 17:02] LABS: Glucose,Whole Blood 244 mg/dL (70-110)
[2025-02-28] MEDS: INSULIN LISPRO (HumaLOG) 100 UNIT/ML 10 mL VL SQ SCH (17:04)
[2025-02-28] MEDS: FOLIC ACID 1 MG TAB PO SCH (19:30)
[2025-02-28 20:00] LABS: Glucose,Whole Blood 221 mg/dL (70-110)
[2025-02-28] MEDS: ZIPRASIDONE 40 MG CAP PO SCH (21:41)
[2025-02-28] MEDS: ZOLPIDEM 5 MG TAB PO SCH (21:41)
[2025-02-28] MEDS: DULoxetine HCL 60 MG CAPSULE.DR PO SCH (21:41)
[2025-02-28] MEDS: metFORMIN 500 MG TAB PO SCH (21:41)
--- NOTE | 2025-02-28 22:18 | HP ---
HISTORY AND PHYSICAL CHIEF COMPLAINT: Change in mental status and fall. HISTORY OF PRESENT ILLNESS: This 49-year-old gentleman with a past medical history of multiple medical problems including diabetes mellitus, was admitted with change in mental status. Apparently, the patient was acting abnormally for the last 2 weeks and the patient is confused. [facility] Currently, the police brought the patient to the ER and the patient was apparently petitioned and the patient admitted for evaluation and treatment. However, psych has seen the patient and recommended schizoaffective disorder, bipolar type. Psych opined that the patient does not meet criteria for inpatient psychiatric admission. Medication adjustments changes were made with the patient closely. I would also recommend a Neurology consultation also. A CT brain showed no acute process. PAST MEDICAL HISTORY: Reviewed include history of diabetes type 2, history of multiple psych issues including PTSD, rest of his chart is also reviewed. HOME MEDICATIONS: Reviewed, include Humalog. Dose and rest of medications reviewed. ALLERGIES: Fluoxetine. FAMILY HISTORY: History of diabetes type 2. SOCIAL HISTORY: History of vaping, THC, methamphetamine, polysubstance abuse. REVIEW OF SYSTEMS: 1A 4-point review of systems is negative except as mentioned earlier. PHYSICAL EXAMINATION: VITAL SIGNS: Pulse is 89, blood pressure 150/91, respirations 16. HEENT: Conjunctivae normal. NECK: No jugular venous distention. CARDIOVASCULAR: S1, S2. RESPIRATIONS: Clear to auscultation. ABDOMEN: Soft. nontender. LEGS: No edema. NERVOUS SYSTEM: No focal deficit. LYMPHATICS: No lymph node palpable in neck, axillae or groin. LABORATORY DATA: CBC within normal limits. Rest of the labs are noted. ASSESSMENT: 1. Change in mental status, acute metabolic encephalopathy possible versus acute psychosis. 2. Diabetes mellitus, type 2. 3. Chronic back pain. 4. History of chest tube. 5. History of anxiety, bipolar, depression, post-traumatic stress disorder, schizoaffective disorder. 6. History of polysubstance abuse. RECOMMENDATIONS AND DISCUSSION: Recommend to continue current management and treatment. Otherwise, I would recommend to follow the Psychiatry recommendations regarding Geodon, Cymbalta, and Klonopin. I would also recommend Neurology consultation to rule out the possibility of any cause of encephalopathy. Resume the home medications. Monitor blood sugars closely. Prognosis is guarded because of multiple complex medical issues once again. Once again, the psych opined that the patient does not meet criteria for inpatient psych admission. MMODL / IJN: [id number] /
[2025-03-01 06:21] LABS: Glucose,Whole Blood 210 mg/dL (70-110)
[2025-03-01] MEDS: PANTOPRAZOLE 40 MG TABLET PO SCH (07:39)
[2025-03-01] MEDS: HYDROcodone/APAP 10-325MG 1 EACH TAB PO PRN (07:39)
[2025-03-01 09:11] LABS: Basophils # (A) 0.08 X 10*3/uL (0.00-0.10); Basophils % (A) 1.2 %; Eosinophils # (A) 0.15 X 10*3/uL (0.04-0.35); Eosinophils % (A) 2.3 %; HCT 47.3 % (39.6-50.0); HGB 14.7 g/dL (13.0-17.0); Immature Grans, Automated 0.90 %; Lymphocytes # (A) 1.66 X 10*3/uL (0.90-5.00); Lymphocytes % (A) 25.7 %; MCH 27.6 pg (27.0-32.0); MCHC 31.1 g/dL (32.0-37.0); MCV 88.9 FL (80.0-97.0); Monocytes # (A) 0.49 X 10*3/uL (0.20-1.00); Monocytes % (A) 7.6 %; NRBC Per 100 WBC 0 X 10*3/uL (0.00-0.01); Neutrophils # (A) 4.02 X 10*3/uL (1.80-7.70); Neutrophils % (A) 62.3 %; Platelet Count 328 X 10*3/uL (140-440); RBC 5.32 X 10*6/uL (4.40-5.60); RDW 16.7 % (11.5-14.5); WBC 6.46 X 10*3/uL (4.50-10.00)
[2025-03-01 10:06] LABS: Anion Gap 11.00 mmol/L (4.00-12.00); BUN/Creat Ratio 12.14 Ratio (12.00-20.00); Blood Urea Nitrogen 8.5 mg/dL (9.0-27.0); Calcium 9.1 mg/dL (8.7-10.3); Carbon Dioxide 23.0 mmol/L (21.6-31.8); Chloride 105 mmol/L (96-109); Cholesterol 251.00 mg/dL (0.00-200.00); Glucose 219 mg/dL (70-110); HDL Cholesterol 39.80 mg/dL (40.00-60.00); LDL Cholesterol,Calculated 152.0 mg/dL (0.0-131.0); Potassium 4.6 mmol/L (3.5-5.5); Sodium 139 mmol/L (135-145); Triglycerides 296.00 mg/dL (0.00-149.00); VLDL Calculation 59.20 mg/dL (5.00-40.00)
[2025-03-01 10:17] VITALS: BP 126/70; PULSE 84; RESP 17; TEMP 98.1
[2025-03-01 11:37] LABS: Vitamin B12 345.0 pg/mL (200.0-944.0)
[2025-03-01 12:23] LABS: Glucose,Whole Blood 257 mg/dL (70-110)
--- NOTE | 2025-03-01 13:35 | P.PN ---
Subjective Progress Note Date: 03/01/25 The patient is a 49-year-old male who was seen in neurologic follow-up on March 01, 2025, in cross coverage for Dr. Dion Decker, in collaboration with Lor Pedersen. The patient's chart has been reviewed. He was originally seen in neurologic consultation by Dr. Decker. Please review his note for details regarding history of chief complaint and past medical history. The patient is seated on the edge of the bed this morning. He reports feeling back to normal. The patient reportedly began asking "strange" approximately 2 weeks ago. This began following a fall in the shower, with a hit to the head. Imaging of the brain is reportedly negative. The patient's mental status changes continued to worsen until, the day of presentation to the emergency department. Currently the patient was at work and his boss elected to drive him to the emergency department. He does recall being at the previous emergency department. He does not recall getting on a bus and being taken back to his home. He does not recall loss of bowel control which occurred on the bus. The patient denies any history of seizure. He denies headache, vision changes. He reports that he does recall driving erratically. He says that he was in "a [place]". Patient reports that he was recently advised that he had to move out of his house, February 27. This, in addition to going through a divorce with his , has been causing the patient a great deal of stress. The patient was evaluated by psychiatry and it was thought to be not a candidate for inpatient treatment. The patient reportedly has been feeling very stressed, depressed, hopeless and helpless. The patient reports occasionally missing a dose of his psych meds. Laboratory evaluation reveals an elevated total cholesterol 251, triglycerides elevated that 296, LDL elevated at 152 and HDL low at 39.8. Patient's hemoglobin A1c is elevated at 11.6. Ammonia level less than 9. Folate is low at 3.9. Objective - Vital Signs Vital signs: Vital Signs Temp 98.1 F 03/01/25 07:08 Pulse 84 03/01/25 07:08 Resp 17 03/01/25 07:08 BP 126/70 03/01/25 07:08 Pulse Ox 96 03/01/25 07:08 FiO2 Intake & Output 02/28/25 03/01/25 03/01/25 18:59 06:59 18:59 Output Total 100 Balance -100 Weight 96.615 kg Output: Urine 100 Other: Voiding Method Toilet Diaper Incontinent # Voids 2 2 - Exam General: Patient is seated on the edge of the bed. He is well-nourished, well- developed and in no acute distress. HEENT: Head is atraumatic, normocephalic. Fundus not visualized. There is no scleral icterus. Mucous membranes are moist. Neurological examination Mental status, the patient is awake, alert and oriented x 3. His speech is clear. There is no dysarthria or aphasia. The patient appropriately answers questions. His affect is appropriate. Cranial nerves: 2-12 grossly intact Motor: Strength is 5/5 throughout - Labs CBC & Chem 7: 03/01/25 03:56 03/01/25 03:56 Labs: Abnormal Lab Results - Last 24 Hours (Table) 02/28/25 02/28/25 02/28/25 Range/Units 10:28 10:28 17:00 MCHC (32.0-37.0) g/dL RDW (11.5-14.5) % Immature Gran # (0.00-0.04) X 10*3/uL BUN (9.0-27.0) mg/dL Glucose (70-110) mg/dL POC Glucose (mg/dL) 244 H (70-110) mg/dL Hemoglobin A1c 11.6 H (<=6.0) % Triglycerides (0.00-149.00) mg/dL Cholesterol (0.00-200.00) mg/dL LDL Cholesterol, Calc (0.0-131.0) mg/dL VLDL Cholesterol, Calc (5.00-40.00) mg/dL HDL Cholesterol (40.00-60.00) mg/dL Folate 3.90 L (4.40-31.00) ng/mL 02/28/25 03/01/25 03/01/25 Range/Units 19:59 03:56 03:56 MCHC (32.0-37.0) g/dL RDW (11.5-14.5) % Immature Gran # (0.00-0.04) X 10*3/uL BUN 8.5 L (9.0-27.0) mg/dL Glucose 219 H (70-110) mg/dL POC Glucose (mg/dL) 221 H (70-110) mg/dL Hemoglobin A1c 11.3 H (<=6.0) % Triglycerides 296.00 H (0.00-149.00) mg/dL Cholesterol 251.00 H (0.00-200.00) mg/dL LDL Cholesterol, Calc 152.0 H (0.0-131.0) mg/dL VLDL Cholesterol, Calc 59.20 H (5.00-40.00) mg/dL HDL Cholesterol 39.80 L (40.00-60.00) mg/dL Folate (4.40-31.00) ng/mL 03/01/25 03/01/25 Range/Units 03:56 06:20 MCHC 31.1 L (32.0-37.0) g/dL RDW 16.7 H (11.5-14.5) % Immature Gran # 0.06 H (0.00-0.04) X 10*3/uL BUN (9.0-27.0) mg/dL Glucose (70-110) mg/dL POC Glucose (mg/dL) 210 H (70-110) mg/dL Hemoglobin A1c (<=6.0) % Triglycerides (0.00-149.00) mg/dL Cholesterol (0.00-200.00) mg/dL LDL Cholesterol, Calc (0.0-131.0) mg/dL VLDL Cholesterol, Calc (5.00-40.00) mg/dL HDL Cholesterol (40.00-60.00) mg/dL Folate (4.40-31.00) ng/mL Assessment and Plan Assessment: Acute encephalopathy, currently at baseline Schizoaffective disorder Diabetes mellitus History of substance abuse Generalized anxiety disorder Tobacco use disorder Hyperlipidemia Plan: 1. Recommend follow-up outpatient, with a neurologist for possible 48-72-hour ambulatory EEG to further clarify the possibility of seizure 2. The patient should be started on atorvastatin 40 mg daily in the setting of the an elevated LDL of 152 and triglycerides of 296 3. B12 level continues to be pending 4. The patient is neurologically stable for discharge Time with Patient: Greater than 30 (35 minutes were spent caring for this patient today including, obtaining an interim history, examining the patient, reviewing imaging, chart documentation, labs, placing orders and creating this note)
--- NOTE | 2025-03-01 14:06 | P.DS ---
Providers Date of admission: 02/27/25 23:05 Expected date of discharge: 03/01/25 Attending physician: Jacky Martin Consults: 02/27/25 23:04 Consult Physician Routine Consulting Provider: Dion Decker Consult Reason/Comments: acute encephalopathy Do you want consulting provider notified?: Yes, Notify in am 02/28/25 00:25 Consult Physician Routine Consulting Provider: Psychiatry - [facility] Psychiatry Consult Reason/Comments: Petitioned Do you want consulting provider notified?: Yes, Notify in am Primary care physician: Mireya Elliott Hospital Course: Discharge diagnoses; Acute metabolic encephalopathy Schizoaffective disorder, not compliant to home antipsychotic medications Diabetes mellitus Substance abuse Generalized anxiety disorder Tobacco use disorder Hospital course; Patient is a 49-year-old male with diabetes mellitus who presented to the ED with altered mental status. Patient was accompanied by police. Reportedly the patient was acting abnormally for the past couple of weeks and that accelerated yesterday when the patient got to work. The patient's boss drove him to [facility]. Patient stated that they told him that he was okay to leave and gave him a bus. To get home. On the bus the patient saw himself and was having balance issues. They petitioned the patient. Patient was apparently also noted to have significant difficulty in remembering the events of the day. He does mention going through a divorce and has increased stress levels recently. Patient reports not taking antipsychotic home meds for some time. UA shows 3+ glucose Urine tox is positive for benzodiazepines Brain CT shows no acute intracranial process Patient was admitted to internal medicine service. Neurology and psychiatry were consulted. Neurology recommended EEG which was negative for any seizure- like activity. Psychiatry also evaluated patient, cleared patient for discharge. PHYSICAL EXAMINATION: GENERAL: The patient is alert and oriented x3, not in any acute distress. Well developed, well nourished. HEENT: Pupils are round and equally reacting to light. EOMI. No scleral icterus. No conjunctival pallor. Normocephalic, atraumatic. No pharyngeal erythema. No thyromegaly. CARDIOVASCULAR: S1 and S2 present. No murmurs, rubs, or gallops. PULMONARY: Chest is clear to auscultation, no wheezing or crackles. ABDOMEN: Soft, nontender, nondistended, normoactive bowel sounds. No palpable organomegaly. MUSCULOSKELETAL: No joint swelling or deformity. EXTREMITIES: No cyanosis, clubbing, or pedal edema. NEUROLOGICAL: Gross neurological examination did not reveal any focal deficits. SKIN: No rashes. Dictation was produced using [employer] dictation software. please excuse any grammatical, word or spelling errors. Patient Condition at Discharge: Stable Plan - Discharge Summary Discharge Rx Participant: Yes New Discharge Prescriptions: New Folic Acid 1 mg PO DAILY 30 Days #30 tab Continue LORazepam [Ativan] 1 mg PO BID PRN PRN Reason: Anxiety Omeprazole 40 mg PO DAILY Gabapentin [Neurontin] 800 mg PO TID DULoxetine HCL [Cymbalta] 60 mg PO BID 30 Days #60 cap Ziprasidone [Geodon] 40 mg PO BID 30 Days #60 cap metFORMIN HCL ER [Glucophage XR] 500 mg PO BID Zolpidem [Ambien] 10 mg PO HS Methylphenidate HCl 20 mg PO TID HYDROcodone/APAP 10-325MG [[place] 10-325] 1 tab PO Q8H PRN PRN Reason: Pain Insulin Degludec [Tresiba Flextouch U-100 Pen] 40 - 50 units SQ DAILY INSULIN LISPRO (HumaLOG) [HumaLOG] 8 - 12 units SQ ACHS Discharge Medication List DULoxetine HCL [Cymbalta] 60 mg PO BID 30 Days #60 cap 12/01/23 [Rx] Ziprasidone [Geodon] 40 mg PO BID 30 Days #60 cap 12/01/23 [Rx] Gabapentin [Neurontin] 800 mg PO TID 02/28/25 [History] HYDROcodone/APAP 10-325MG [[place] 10-325] 1 tab PO Q8H PRN 02/28/25 [History] INSULIN LISPRO (HumaLOG) [HumaLOG] 8 - 12 units SQ ACHS 02/28/25 [History] Insulin Degludec [Tresiba Flextouch U-100 Pen] 40 - 50 units SQ DAILY 02/28/25 [History] LORazepam [Ativan] 1 mg PO BID PRN 02/28/25 [History] Methylphenidate HCl 20 mg PO TID 02/28/25 [History] Omeprazole 40 mg PO DAILY 02/28/25 [History] Zolpidem [Ambien] 10 mg PO HS 02/28/25 [History] metFORMIN HCL ER [Glucophage XR] 500 mg PO BID 02/28/25 [History] Folic Acid 1 mg PO DAILY 30 Days #30 tab 03/01/25 [Rx] Follow up Appointment(s)/Referral(s): Mireya Elliott DO [Primary Care Provider] - 1-2 days Discharge Disposition: HOME SELF-CARE
== END 2025-03-01 17:23 | disposition home or self-care (01) ==
LOC: EC 18:55 → 4SSUR 23:05
PROVIDERS: ADMIT Hospitalist; ATTEND Hospitalist
DX: G93.41 Metabolic encephalopathy (principal); E11.65 Type 2 diabetes mellitus with hyperglycemia; E11.40 Type 2 diabetes mellitus with diabetic neuropathy, unspecified; F25.0 Schizoaffective disorder, bipolar type; F41.1 Generalized anxiety disorder; F43.10 Post-traumatic stress disorder, unspecified; G89.29 Other chronic pain; M54.9 Dorsalgia, unspecified; E78.5 Hyperlipidemia, unspecified; F17.290 Nicotine dependence, other tobacco product, uncomplicated; Z59.9 Problem related to housing and economic circumstances, unspecified; Z63.5 Disruption of family by separation and divorce; Z91.51 Personal history of suicidal behavior; Z79.4 Long term (current) use of insulin; Z79.84 Long term (current) use of oral hypoglycemic drugs; Z79.899 Other long term (current) drug therapy
CPT/HCPCS: 96374; 99285; 36415; 95819; 80061; 80053; 80048 ×2; 84443; 82607; 82140; 82746; 83605; 83735; 84484; 85025 ×3; 85610; 85730; 81003; 80306; 80143; 80320; 83036 ×2; 80179; 70450; G0378 ×3; J1920